=== PATIENT | male | born 1990 | race Caucasian/White ===

== ENCOUNTER 2023-04-28 09:44 | Emergency (ER) | payer SELFPAY ==
--- NOTE | ~2023-04-28 | CT_ITS ---
EXAMINATION: CT abdomen pelvis w con DATE: 04/28/2023 11:21 INDICATION: Low abdominal pain. Nausea. TECHNIQUE: Computed tomography (CT) of the abdomen and pelvis was performed with 100 mL Omnipaque 350 intravenous contrast. Automated exposure control and iterative reconstruction technique were employe d. The dose-length product was 265.68 mGy-cm. COMPARISON: None. FINDINGS: The visualized portions of the lung bases are clear without pneumonia or pleural effusion. The heart size is normal. No pericardial effusion. The liver, gallbladder, spleen, pancreas, adrenal glands, and kidneys are normal. There are no dilated loops of bowel. The appendix is normal. There ar e no pathologically enlarged lymph nodes. There is no free intraperitoneal fluid. There is mild lumba r spondylosis. IMPRESSION: 1. No etiology for the patient's symptoms. Reviewed, dictated and finalized at location A.
--- NOTE | ~2023-04-28 | US_ITS ---
EXAMINATION: US scrotum doppler DATE: 04/28/2023 11:01 INDICATION: Testicular pain. TECHNIQUE: Grayscale and Doppler ultrasound images of the testes were obtained. COMPARISON: None. FINDINGS: The right testis measures 4.7 x 2.3 x 3.4 cm. The left testis measures 4.5 x 2.2 x 3.0 cm. There is normal vascular flow to both testes. The right epididymis demonstrates a 4 mm cyst. The left epididymis is normal with normal vascular flow. There is no varicocele or hydrocele. IMPRESSION: 1. No etiology for the patient's symptoms. Reviewed, dictated and finalized at location A.
[2023-04-28 09:51] VITALS: BP 138/93; PULSE 66; RESP 16; TEMP 36.4; O2SAT 100
--- NOTE | 2023-04-28 09:55 | ED.ABDPAIN ---
HPI - Abdominal Pain General Chief Complaint: Abdominal Pain Stated Complaint: abd pain Time Seen by Provider: 04/28/23 09:49 Source: patient Mode of arrival: ambulatory Limitations: no limitations History of Present Illness HPI narrative: Patient is a 32 y/o male who presents to the ED with c/o abdominal and chest pain. Patient reports having CP for the last 2-3 months. He reports having fairly constant pressure that occurs daily with intermittent sharp stabbing pains. He denies previous hx of CAD, cardiac issues, HTN, HLD, blood clots. Denies SOB. Patient also reports having lower abdominal pain for the last 1.5 weeks. Pain has been constant since that time. No significant aggravating or alleviating factors. He has not tried anything for the pain. Pain occasionally radiates into his testicles/groin. Endorses intermittent mild nausea, denies vomiting, diarrhea, constipation, dysuria, hematuria, fevers. Related Data Allergies Allergy/AdvReac Type Severity Reaction Status Date / Time No Known Allergies Allergy Mild Verified 04/28/23 09:47 Review of Systems Review of Systems: CONSTITUTIONAL: Denies fever, chills, or sweats. CARDIOVASCULAR: See HPI. RESPIRATORY: Denies dyspnea. GASTROINTESTINAL: See HPI. GENITOURINARY: See HPI. SKIN: Denies rash or itching. MUSCULOSKELETAL: Denies back pain, joint pain, or myalgia. NEUROLOGIC: Denies headache, numbness, or weakness. All systems reviewed & are unremarkable except as noted in HPI and below Exam Narrative: GENERAL: Well appearing, well-nourished, non-toxic, in no acute distress. HEAD: Normocephalic, atraumatic. NECK: Supple. No adenopathy, no masses. RESPIRATORY: Airway patent, respirations nonlabored. Clear to auscultation bilaterally, no rales, rhonchi, wheezing. CARDIOVASCULAR: Regular rate and rhythm without murmurs, rubs, or gallops. Peripheral pulses 2+ and equal bilaterally. ABDOMINAL: Soft, minimal discomfort throughout lower abdomen, no significant focal tenderness throughout abdomen, nondistended, no hepatosplenomegaly. Normoactive BS. MUSCULOSKELETAL: Moves all extremities. Strength/ROM intact without gross deformities. SKIN: Warm, dry, normal color. No rashes. NEURO: A&O X3. Speech clear. Cranial nerves II-XII grossly intact. Steady gait. No ataxic movements. PSYCHIATRIC: Anxious, twiddling fingers. Normal interaction. Course Vital Signs Vital signs: Vital Signs Temperature 97.6 F 04/28/23 09:51 Pulse Rate 66 04/28/23 09:51 Respiratory Rate 16 04/28/23 09:51 Blood Pressure 138/93 H 04/28/23 09:51 Pulse Oximetry 100 04/28/23 09:51 Oxygen Delivery Room Air 04/28/23 09:51 Temperature 97.6 F 04/28/23 09:51 Pulse Rate 61 04/28/23 12:26 Respiratory Rate 18 04/28/23 12:26 Blood Pressure 128/82 04/28/23 12:26 Pulse Oximetry 100 04/28/23 12:26 Oxygen Delivery Room Air 04/28/23 09:51 MDM - Abdominal Pain MDM Narrative Medical decision making narrative: Cardiac w/u reassuring. EKG w/ likely early repol. Trop negative. CP has been ongoing for quite some time. Would expect troponin elevation if cardiac in nature. Patient otherwise very low risk for ACS. Heart score of 1 based on EKG. Basic laboratory studies otherwise unremarkable. Urinalysis without signs of infection. CT abd/pelvis negative. Scrotal US negative. Discussed lab and imaging findings and reassuring work-up with patient and mother at bedside. He did not want anything for pain throughout ED stay. No signs of surgical abdomen on repeat evaluations. He had not tried anything for pain prior to arrival. Discussed possibility of muscular strain, anxiety, atypical chest pain. Recommended that patient have close follow-up with primary care doctor for further evaluation and to ensure resolution of symptoms. Given return precautions. Patient agrees with plan. Discharged in stable condition. Medical Records Attestation: I reviewed the patient's medical re
--- NOTE | 2023-04-28 10:04 | ECG_ITS ---
Measurements Intervals [place] Rate: 61 P: 53 MN: 162 QRS: 10 QRSD: 99 T: 60 QT: 360 QTc: 365 Interpretive Statements SINUS RHYTHM POSSIBLE RIGHT VENTRICULAR CONDUCTION DELAY [RSR (QR) IN V1/V2] ST ELEVATION, PROBABLY EARLY REPOLARIZATION [ST ELEVATION WITH NORMALLY INFLECTED T WAVE] RSR PRIME ABNORMAL ECG NO PREVIOUS ECG AVAILABLE FOR COMPARISON Electronically Signed On 04-28-2023 11:11:11 CDT by Brad Dang M.D.
[2023-04-28 10:20] LABS: Basophils Absolute Auto 0.1 K/mm3 (0.0-0.1); Basophils Percent Auto 0.9 % (0.2-1.2); Eosinophils Absolute Auto 0.1 K/mm3 (0-0.3); Eosinophils Percent Auto 1.1 % (0-4.4); Hemoglobin 13.9 g/dL (14.0-18.0); Immature Granulocyte Absolute 0.01 K/mm3 (0.00-0.031); Immature Granulocyte Percent A 0.2 % (0-0.5); Lymphocytes Absolute Auto 1.99 K/mm3 (0.9-3.2); Lymphocytes Percent Auto 37.4 % (18.3-44.2); Mean Corpuscular HGB Conc 34.8 g/dl (32-36); Mean Corpuscular Hemoglobin 32.6 pg (26-34); Mean Corpuscular Volume 93.7 fl (80-100); Mean Platelet Volume 8.6 fl (7.4-10.4); Monocytes Absolute Auto 0.5 K/mm3 (0.1-0.6); Monocytes Percent Auto 9.2 % (2.6-8.5); Neutrophils Absolute Auto 2.7 K/mm3 (1.3-6.7); Neutrophils Percent Auto 51.2 % (45.5-73.1); Platelet Count Result 276 k/mm3 (150-375); Red Blood Count 4.27 M/mm3 (4.6-6.20); Red Cell Distribution Width 12.2 % (11.5-14.5); White Blood Count 5.3 K/mm3 (4.5-10.0)
[2023-04-28 10:41] LABS: Troponin I < 0.012 ng/mL (0.000-0.034)
[2023-04-28 10:50] LABS: Alanine Aminotransferase 18 U/L (6-50); Albumin Level 4.3 g/dL (3.5-5.1); Alkaline Phosphatase 36 U/L (38-126); Anion Gap 3 mmol/L (8-16); Aspartate Amino Transferase 19 U/L (17-59); Bilirubin,Total 0.5 mg/dL (0.2-1.3); Blood Urea Nitrogen 13 mg/dL (9-20); Calcium 9.2 mg/dL (8.4-10.2); Carbon Dioxide 29 mmol/L (22-30); Chloride 104 mmol/L (98-107); Estimated CRCL calculation 106 ml/min; Estimated Glomerular Filt Rate > 60; Glucose 101 mg/dL (65-110); Lipase 60 U/L (23-300); Potassium 4.6 mmol/L (3.4-5.0); Sodium 136 mmol/L (137-145)
[2023-04-28 11:00] VITALS: BP 119/93; PULSE 72; RESP 19; O2SAT 100
--- NOTE | 2023-04-28 11:15 | PC.NURSE ---
pt to CT via stretcher at this time
[2023-04-28 11:18] LABS: Appearance Urine Clear (Clear); Bilirubin Urine Negative (Negative); Blood Urine Negative (Negative); Color Urine Yellow (Yellow); Glucose Urine UA Negative (Negative); Ketones Urine Negative (Negative); Leukocyte Esterase Ur Negative LEU/UL (Negative); Nitrate Urine Negative (Negative); Protein Urine Negative (Negative); Specific Grav Ur 1.006 (1.001-1.035); Urobilinogen Urine 0.2 mg/dL (<2.0); pH Urine 6.5 (5.0-9.0)
[2023-04-28 11:29] LABS: Add Urine Microscopic? NO
[2023-04-28 12:26] VITALS: BP 128/82; PULSE 61; RESP 18; O2SAT 100
== END 2023-04-28 12:27 | disposition home or self-care (01) ==
PROVIDERS: Emergency Medicine; Emergency Provider Physician Assistant
DX: R10.30 Lower abdominal pain, unspecified (principal); R07.9 Chest pain, unspecified
CPT/HCPCS: 36415; 74177; 76870; 80053; 81003; 83690; 84484; 85025; 93005; 93976; 99284; Q9967

== ENCOUNTER 2024-02-28 19:37 | Emergency (ER) | payer SELFPAY ==
--- NOTE | 2024-02-28 19:38 | ED.SKABFB ---
HPI - Skin/Abscess/Foreign Bdy General Chief complaint: Skin/Abscess/Foreign Body Stated complaint: blister on left foot Time Seen by Provider: 02/28/24 19:38 Source: patient Mode of arrival: ambulatory Limitations: no limitations History of Present Illness HPI narrative: Raúl is a 33-year-old male patient presenting to the clinic today with complaints of a blister on his left heel. He reports he has had this blister for a few days and thinks is due to an insect bite. He denies any fever chills. Does have some redness around the blister. Denies any history of diabetes. States the area is very itchy Related Data Allergies Allergy/AdvReac Type Severity Reaction Status Date / Time No Known Allergies Allergy Mild Verified 02/28/24 19:39 Review of Systems Review of Systems: Pertinent positives per HPI. Patient denies any fever, chills, rash, headache, visual changes, dizziness, cough, runny nose, sore throat, shortness of breath, chest pain, palpitations, nausea, vomiting, diarrhea, constipation, abdominal pain, or any urinary issues. PMFSH Comments At the time of my signature, I reviewed and agree with the nursing past medical, surgical, social, and family history. There is no relevant family history pertinent to the patient complaint. Exam Narrative: General: Well-developed, well nourished, in no apparent distress Head: Normocephalic, atraumatic. Cardio: Regular rate and rhythm, s1 and s2 normal, no murmur appreciated. Resp: Clear to auscultation bilaterally, no rhonchi, rales, wheezing or rubs. Integumentary: [place], warm, and dry, blister with serous fluid to the left lateral heel, no induration palpable, mild redness around the blister Course Course Emergency Course: Portions of this record may have been created with voice recognition software. Level of Care: Express Care Visit Vital Signs Vital signs: Vital signs reviewed MDM - Skin/Abscess/Foreign Bdy MDM Narrative Medical decision making narrative: At the time of visit patient is resting comfortably on the exam table. Patient appears to be nontoxic. Plan: I suspect patient has a general allergic reaction due to an insect bite or sting causing a blister to his left heel. Reports that the area is very itchy. Will place him on mupirocin cream to prevent infection when the blister pops. Supportive measures were discussed with the patient and they voiced understanding discharge instructions and agrees to treatment plan. Return precautions reviewed Differential Diagnosis Differential diagnosis: Likely abscess of skin or subcutaneous tissue, cellulitis, eczema, insect bites and other (Blister) Discharge Plan Discharge Clinical Impression: Insect bite Qualifiers: Encounter type: initial encounter Site of insect bite: foot Laterality: left Qualified Code(s): S90.862A - Insect bite (nonvenomous), left foot, initial encounter Patient Disposition: Home, Self-Care Condition: Stable Instructions: Antibiotic Form, Insect Bite or Sting (ED) Additional Instructions: Keep wound clean and dry Avoid popping blister on purpose-allow blister to pop on its own Apply mupirocin cream to the affected area twice daily as directed May take Benadryl 25-50 mg every 6 hours as needed for itching May apply cool compress to the affected area to help alleviate itching Follow-up with your primary care doctor as needed Prescriptions: New mupirocin 2 % ointment 1 applic topical BID 7 Days Qty: 22 0RF Follow-up/Referrals: PHYSICIAN,HEEL GOUGER [Primary Care Provider] - Time of Disposition: 19:48 Quality NIHSS Nursing Documentation ED NIHSS nursing documentation: reviewed/agree
[2024-02-28 19:43] VITALS: BP 124/83; PULSE 97; RESP 16; TEMP 37.2; O2SAT 100
== END 2024-02-28 19:50 | disposition home or self-care (01) ==
PROVIDERS: Emergency Provider Nurse Practitioner Family
DX: S90.862A Insect bite (nonvenomous), left foot, initial encounter (principal); W57.XXXA Bitten or stung by nonvenomous insect and other nonvenomous arthropods, initial encounter
CPT/HCPCS: 99213; G0463

== ENCOUNTER 2024-05-20 17:50 | Outpatient (CLI) | payer OTHER, SELFPAY ==
[2024-05-20 18:08] LABS: Basophils Absolute Auto 0.05 K/mm3 (0.00-0.10); Basophils Percent Auto 0.7 % (0.0-1.0); Eosinophils Absolute Auto 0.15 K/mm3 (0.02-0.50); Hematocrit 41.9 % (40.0-54.0); Hemoglobin 14.4 g/dL (14.0-18.0); Immature Granulocyte Absolute 0.05 K/mm3 (0.00-0.00); Immature Granulocyte Percent A 0.7 % (0.0-0.0); Lymphocytes Absolute Auto 2.65 K/mm3 (1.10-4.50); Lymphocytes Percent Auto 35.3 % (18.0-42.0); Mean Corpuscular HGB Conc 34.4 g/dL (32-36); Mean Corpuscular Hemoglobin 31.6 pg (27.0-31.0); Mean Corpuscular Volume 91.9 fL (78.0-102.0); Mean Platelet Volume 8.3 fl (8.7-11.0); Neutrophils Percent Auto 53.3 % (50.0-70.0); Platelet Count Result 319 K/mm3 (150-420); Red Blood Count 4.56 M/mm3 (4.70-6.10); Red Cell Distribution Width 11.8 % (11.6-14.4); White Blood Count 7.5 K/mm3 (4.8-10.8)
[2024-05-20 18:15] LABS: Hemoglobin A1C 5.2 % (<5.7)
[2024-05-20 18:55] LABS: Alanine Aminotransferase 12 U/L (16-63); Albumin Level 4.6 g/dL (3.4-5.0); Alkaline Phosphatase 45 U/L (46-116); Anion Gap 7 mmol/L (4-12); Aspartate Amino Transferase 10 U/L (15-37); Bilirubin,Total 0.4 mg/dL (0.00-1.00); Blood Urea Nitrogen 20 mg/dL (7-18); Calcium 9.4 mg/dL (8.5-10.1); Carbon Dioxide 32 mmol/L (21-32); Chloride 101 mmol/L (98-108); Cholesterol 158 mg/dL (0-200); Estimated Glomerular Filt Rate > 60; Glucose 93 mg/dL (70-99); HDL Direct 49 mg/dL (40-60); LDL Cholesterol Calculated 90 mg/dL (<130); Osmolality Calculated 292 mOsm/kg (285-295); Potassium 4.1 mmol/L (3.5-5.1); Sodium 140 mmol/L (136-145); Total Protein 7.9 g/dL (6.4-8.2); Triglycerides 94 mg/dL (0-150)
[2024-05-20 19:08] LABS: Erythrocyte Sedimentation Rate 5 mm/hr (0-15)
[2024-05-20 19:18] LABS: Free T4 Free Thyroxine Reflex 0.99 ng/dL (0.76-1.46); Rheumatoid Factor Screen Negative (Negative)
== END 2024-05-20 17:51 | disposition home or self-care (01) ==
PROVIDERS: PCP Nurse Practitioner Family; Visit Provider Nurse Practitioner Family
DX: Z00.00 Encounter for general adult medical examination without abnormal findings (principal); Z82.61 Family history of arthritis
CPT/HCPCS: 36415; 80053; 80061; 83036; 84439; 84443; 85025; 85652; 86430

== ENCOUNTER 2024-06-21 17:51 | Outpatient (CLI) | payer OTHER, SELFPAY ==
--- NOTE | ~2024-06-21 | XR_ITS ---
Lumbosacral Spine: AP and lateral views Clinical History: Pain Findings: The normal lordotic curve is maintained. The vertebral bodies and posterior elements are i ntact. The intervertebral disc spaces are preserved. The sacroiliac joints are normally outlined. Impression: No significant abnormality. Reviewed, dictated and finalized at [facility]. Impression: No significant abnormality.
[2024-06-21 19:19] LABS: Thyroid Stimulating Hormone Reflex 5.43 u/IU/mL (0.36-3.74)
[2024-06-21 19:50] LABS: Free T4 Free Thyroxine Reflex 0.88 ng/dL (0.76-1.46)
== END 2024-06-21 17:52 | disposition home or self-care (01) ==
LOC: CHSLAB 17:55
PROVIDERS: PCP Nurse Practitioner Family; Visit Provider Nurse Practitioner Family
DX: R79.89 Other specified abnormal findings of blood chemistry (principal); M54.41 Lumbago with sciatica, right side
CPT/HCPCS: 36415; 72100; 84439; 84443

== ENCOUNTER 2024-10-19 17:14 | Outpatient (CLI) | payer OTHER, SELFPAY ==
--- OUTSIDE RECORDS SUMMARY | 2024-10-19 17:18 | XMS_ITS | Clinical Summary ---
Author Organization [facility] Address [address] [place] [address] Care Team Providers Care Protozoologist Name Role Phone Pedro Gomez MD Primary Care Provider [phone] Source Comments [facility],non-owned Affiliates and Associated Physician Practices is amultiple site organization consisting of ambulatory clinics and hospital sitesin [place], [place], [place] and [place]. This disclosure is being madepursuant to the Care Everywhere program and may not contain all information available regarding this patient. Last updated 18.[facility] Allergies No known active allergies Medications * Be aware that medications may not be up to date on this document. Alwaysverify current medications with the patient. Medication Sig Dispensed Refills Start Date End Date Status lisdexamfetamine (VYVANSE) 20 MG capsule Take 1 (one) capsule by mouth every morning 30 capsule 02/22/2022 Active Active Problems Problem Noted Date Diagnosed Date Moderate episode of recurrent major depressive d isorder 11/06/2018 Attention-deficit hyperactivity disorder, combin ed type 05/01/2015 Social phobia, generalized 02/13/2015 Specific reading disorder 02/13/2015 Chronic urticaria 02/13/2015 Heartburn 01/26/2015 Resolved Problems Problem Noted Date Diagnosed Date Resolved Date Anxiety 01/27/2018 05/13/2018 Anxiety 01/27/2018 11/06/2018 Tobacco use 05/10/2016 11/06/2018 Immunizations Name Administration Dates Next Due INFLUENZA VACCINE, QUADR. (F LUZONE; FLULAVAL; FLUARIX; AFLURIA QUADRIVALENT; 6MO+), 0.5 ML (IIV4) 07/24/2018 TDAP (7yrs+) 04/28/2015 Family History Medical History Relation Name Comments Anxiety Disorder Father Depression Father Status: Alive Anxiety Disorder Mother Autoimmune Disease Mother Depression Mother Status: Alive Relation Name Status Comments Father Mother Social History Tobacco Use Types Packs/Day Years Used Date Smoking Tobacco: Former Cigarettes Smokeless Tobacco: Never Tobacco Cessation:Counseling Given: Yes Alcohol Use Standard Drinks/Week Comments Yes 0 (1 standard drink = 0.6 oz pur e alcohol) PHQ-2 Answer Date Recorded PHQ2 TOTAL SCORE 4 02/22/2022 Sex and Gender Information Value Date Recorded Sex Assigned at Not on file Gender Identity Not on file Sexual Orientation Not on file Last Filed Vital Signs Vital Sign Reading Time Taken Comments Blood Pressure 110/61 12/21/2021 9:26 AM CDT Pulse 70 12/21/2021 9:26 AM CDT Temperature 36.1 ??C (97 ??F) 12/21/2021 9:26 AM CDT Respiratory Rate 20 12/21/2021 9:26 AM CDT Oxygen Saturation 100% 12/21/2021 9:26 AM CDT Inhaled Oxygen Concentration - - Weight 71.4 kg (157 lb 8 oz) 12/21/2021 9:26 AM CDT Height 174 cm (5' 8.5 ) 12/21/2021 9:26 AM CDT Body Mass Index 23.6 12/21/2021 9:26 AM CDT Plan of Treatment Health Maintenance Due Date Last Done Comments HEPATITIS C SCREENING 10/17/2010 HEPATITIS B VACCINE (1 of 3 - 19+ 3-dose series) 2011 COVID-19 VACCINE (2023-2 5 season) 2024 INFLUENZA VACCINE (#1) 2024 07/24/2018 DEPRESSION SCREENING 09/22/2024 02/22/2022 DTAP/TDAP/TD VACCINES (2 - T d or Tdap) 04/28/2025 04/28/2015 ZOSTER VACCINE (1 of 2) 2042 HIV SCREENING Completed 06/05/2017 HIB VACCINE Aged Out No longer eligi ble based on patient's age to complete this topic HPV VACCINE Aged Out No longer eligi ble based on patient's age to complete this topic MENINGOCOCCAL (Group B) VACCINE Aged Out No longer eligible based on patient's age to complete this topic MENINGOCOCCAL VACCINE Aged Out No sandra joyce eligible based on patient's age to complete this topic PNEUMOCOCCAL VACCINE Aged Out No long er eligible based on patient's age to complete this topic Procedures Procedure Name Priority Date/Time Associated Diagnosis Comments HIV-1 HIV-2 ANTIBODY W REFLX Routine 06/05/2017 10:50 AM CDT from Last 3 Months or Most Recently Relevant to Health Maintenance Results * HIV-1 HIV-2 ANTIBODY W REFLX (06/05/2017 10:50 AM CDT) HIV 1 Antibody Negative Negative [facility] ([place]) HIV-2 Antibody Negative Negative [facility] ([place]) Interpretation Comment [facility] ([place]) Comment: Negative for HIV-1 and HIV-2 antibodies See RNA Reflex. Blood specimen (specimen) BLOOD SPECIMEN / Unknown 06/05/2017 10:50 AM CDT 06/05/2017 11:23 AM CDT Narrative [facility] ([place]) - 06/09/2017 6:06 AM CDT Performed at: ??01 - [facility] [address] ??[id number] Stop Attacher: Roberto Higgins PhD, Phone: ??[phone] Zoe Crockett MD LAB - SEROLOGY ORDER RAAD [facility] ([place]) from Last 3 Months or Most Recently Relevant to Health Maintenance Care Teams Protozoologist Relationship Specialty Start Date End Date Pedro Gomez MD PCP - General 05/14/16
--- OUTSIDE RECORDS SUMMARY | 2024-10-19 17:18 | XMS_ITS | Referral Summary ---
Author Organization [facility] Address [address] [place] [address] Care Team Providers Care Inspector Materials And Processes Name Role Phone Pedro Gomez MD Primary Care Provider [phone] Source Comments [facility],non-owned Affiliates and Associated Physician Practices is amultiple site organization consisting of ambulatory clinics and hospital sitesin [place], [place], [place] and [place]. This disclosure is being madepursuant to the Care Everywhere program and may not contain all information available regarding this patient. Last updated 18.[facility] Allergies No known active allergies Medications * [...] 0.5 ML (IIV4) 07/24/2018 TDAP (7yrs+) 04/28/2015 Social History Tobacco Use Types Packs/Day Years [...] 12/21/2021 9:26 AM CDT Plan of Treatment Not on file Procedures Procedure Name Priority Date/Time Associated Diagnosis Comments HIV-1 HIV-2 ANTIBODY W REFLX Routine 06/05/2017 10:50 AM CDT from Last 3 Months or Most Recently Relevant to Health Maintenance Results * HIV-1 HIV-2 ANTIBODY W REFLX (06/05/2017 10:50 AM CDT) HIV 1 Antibody Negative Negative [facility] ([place]) HIV-2 Antibody Negative Negative [facility] ([place]) Interpretation Comment [facility] ([place]) Comment: Negative for HIV-1 and HIV-2 antibodies See RNA Reflex. Blood specimen (specimen) BLOOD SPECIMEN / Unknown 06/05/2017 10:50 AM CDT 06/05/2017 11:23 AM CDT Narrative [facility] ([place]) - 06/09/2017 6:06 AM CDT Performed at: ??01 - [facility] [address] ??[id number] Electrical Prospecting Supervisor: Roberto Higgins PhD, Phone: ??[phone] Zoe Crockett MD LAB - SEROLOGY ORDER RAAD [facility] ([place]) from Last 3 Months or Most Recently Relevant to Health Maintenance Care Teams Inspector Materials And Processes Relationship Specialty Start Date End Date Pedro Gomez MD PCP - General 05/14/16
--- OUTSIDE RECORDS SUMMARY | 2024-10-19 17:18 | XMS_ITS | Patient Health Summary ---
Author Organization [facility] Address [address] [place] [address] Care Team Providers Care Shipping Point Inspector Name Role Phone Pedro Gomez MD Primary Care Provider [phone] Note from [facility],non-owned Affiliates and Associated Physician Practices is amultiple site organization consisting of ambulatory clinics and hospital sitesin [place], [place], [place] and [place]. This disclosure is being madepursuant to the Care Everywhere program and may not contain all information available regarding this patient. Last updated 18.[facility] Allergies No known active allergies Medications * Be aware that medications may not be up to date on this document. Alwaysverify current medications with the patient. * lisdexamfetamine (VYVANSE) 20 MG capsule(Started 02/22/2022) Take 1 (one) capsule by mouth every morning Active Problems Problem Noted Date Diagnosed Date Moderate episode of recurrent major depressive d isorder 11/06/2018 Attention-deficit hyperactivity disorder, combin ed type 05/01/2015 Social phobia, generalized 02/13/2015 Specific reading disorder 02/13/2015 Chronic urticaria 02/13/2015 Heartburn 01/26/2015 Resolved Problems Problem Noted Date Diagnosed Date Resolved Date Anxiety 01/27/2018 05/13/2018 Anxiety 01/27/2018 11/06/2018 Tobacco use 05/10/2016 11/06/2018 Immunizations * INFLUENZA VACCINE, QUADR. (FLUZONE; FLULAVAL; FLUARIX; AFLURIA QUADRIVALENT; 6MO+), 0.5 ML (IIV4)(Given 07/24/2018) * TDAP (7yrs+)(Given 04/28/2015) Social History Tobacco Use Types Packs/Day Years [...] Mass Index 23.6 12/21/2021 9:26 AM CDT Procedures * SARS-COV-2 (COVID-19) IN HOUSE(Performed 08/08/2020) Performed for Exposure to SARS-associated coronavirus * GLUCOSE(Performed 05/13/2018) Performed for Fatigue, unspecified type * FOLATE(Performed 05/13/2018) Performed for Fatigue, unspecified type * VITAMIN B12(Performed 05/13/2018) Performed for Fatigue, unspecified type * FERRITIN(Performed 05/13/2018) Performed for Fatigue, unspecified type * CBC W AUTO DIFFERENTIAL(Performed 05/13/2018) Performed for Fatigue, unspecified type * TSH(Performed 05/13/2018) Performed for Fatigue, unspecified type * CALPROTECTIN FECAL(Performed 06/05/2017) * CULTURE STOOL+ E COLI SHIGA-LIKE TOXIN(Performed 06/05/2017) * HIV-1 HIV-2 ANTIBODY W REFLX(Performed 06/05/2017) * HIV-1 RNA QUAL(Performed 06/05/2017) * ERYTHROCYTE SEDIMENTATION RATE(Performed 06/05/2017) * COMPREHENSIVE METABOLIC PANEL(Performed 06/05/2017) * C-REACTIVE PROTEIN(Performed 06/05/2017) * CBC W AUTO DIFFERENTIAL(Performed 06/05/2017) * CBC W AUTO DIFFERENTIAL(Performed 06/05/2017) * CHLAMYDIA TRACHOMATIS NAN(Performed 06/05/2017) * NEISSERIA GONORRHOEAE NAN(Performed 06/05/2017) * CULTURE URINE(Performed 06/05/2017) * OCCULT BLOOD FECES 1 - POCT (AMB) [facility]U(Performed 06/05/2017) * HELICOBACTER PYLORI ANTIBODY IGM(Performed 01/26/2015) * TISSUE TRANSGLUTAMINASE AB IGA(Performed 01/26/2015) * IGA BLOOD(Performed 01/26/2015) * EKG 12-LEAD(Performed 01/26/2015) * PT-INR [facility](Performed 01/23/2015) * XR CHEST 2VW(Performed 01/23/2015) * COMPREHENSIVE METABOLIC PANEL(Performed 01/23/2015) * LIPASE BLOOD(Performed 01/23/2015) * CBC W AUTO DIFFERENTIAL(Performed 01/23/2015) * CBC W AUTO DIFFERENTIAL(Performed 01/23/2015) * GLUCOSE - POINT OF CARE (AMB) SLU(Performed 01/23/2015) * GLUCOSE - POINT OF CARE (AMB) [facility]U(Performed 01/23/2015) * GLUCOSE ACCUCHECK(Performed 01/23/2015) Results * (ABNORMAL) SARS-COV-2 (COVID-19) IN HOUSE (08/08/2020 3:48 PM DRUM WORKER) COVID-19 PCR Detected( AA) Not detected 08/10/2020 7:33 AM DRUM WORKER [facility] MICROBIOLOGY Microbiology SPECIMEN FROM NASOPHARYNGEAL STRUCTURE / Unknown Collection / Unknown 08/08/2020 3:48 PM DRUM WORKER 08/08/2020 3:48 PM DRUM WORKER Narrative [facility] MICROBIOLOGY - 08/10/2020 7:33 AM DRUM WORKER This nucleic acid amplification assay performance was validated by [facility]biology [facility]. This test has been authorized by the Food and Drug administration (FDA)under an Emergency??Use Authorization (EUA). This test has been validated in accordance with the FDA's guidance document Policy for Diagnostic Testing in Laboratories Certified to perform High Complexity Testing under CLIA prior to Emergency Use Authorization for Coronavirus Disease-2019 during the Public Health Emergency issued on November 20, 2019. FDA independent review of this validation is pending. This test is only authorized for the duration of time the declaration that circumstances exist justifying the authorization of emergency use of in vitro diagnostic tests for detection of SARS-CoV-2 virus and/or diagnosis of COVID-19 infection under section 564(b)(1) of the Act, 21 U.S.C 360bbb-3 (b)(1), unless the authorization is terminated or revoked sooner. Fact Sheets for this EUA assay are available upon request. Marcelo Barcenas INDUSTRIAL PARAMEDIC-CURATOR [facility] - MICROBIOL OGY ORDERABLES [facility] [address] [place], [place] [address], [facility] [phone] * (ABNORMAL) CBC WITH DIFFERENTIAL (05/13/2018 12:51 PM CDT) Only the most recent of5 resultswithin the time period is included. WBC 5.5 3.5 - 10.5 10? 3 /uL 05/13/2018 2:19 PM CDT [facility] RBC 4.91 4.30 - 5.70 10? 6 /uL 05/13/2018 2:19 PM T [facility] Hemoglobin 15.6 13.5 - 17.5 g/dL 05/13/2018 2:19 PM [facility] Hematocrit 43.0 39.0 - 50.0 % 05/13/2018 2:19 PM T [facility] MCV 87.6 81.0 - 97.0 fL 05/13/2018 2:19 PM T [facility] MCH 31.8 28.0 - 34.0 pg 05/13/2018 2:19 PM [facility] MCHC 36.3(H) 32.0 - 36.0 g/dL 05/13/2018 2:19 PM [facility] Platelet Count 290 150 - 400 10? 3 /uL 05/13/2018 2:19 PM [facility] RDW-SD 38.5 36.0 - 50.0 fL 05/13/2018 2:19 PM [facility] RDW-CV 12.1 11.2 - 14.8 % 05/13/2018 2:19 PM [facility] MPV 9.0(L) 9.3 - 12.8 fL 05/13/2018 2:19 PM [facility] Neutrophils % 45.1 35.0 - 70.0 % 05/13/2018 2:19 PM [facility] Lymphocytes % 42.4 19.7 - 55.1 % 05/13/2018 2:19 PM [facility] Monocytes % 10.1 3.0 - 15.0 % 05/13/2018 2:19 PM [facility] Eosinophils % 2.0 0.0 - 6.0 % 05/13/2018 2:19 PM [facility] Basophil % 0.4 0.0 - 1.5 % 05/13/2018 2:19 PM [facility] Neutrophils Absolute 2.5 1.6 - 7.0 10? 3 /uL 05/13/2018 2:19 PM [facility] Lymphocyte Absolute 2.3 0.8 - 2.9 10? 3 /uL 05/13/2018 2:19 PM [facility] Monocytes Absolute 0.55 0.14 - 0.66 10? 3 /uL 05/13/2018 2:19 PM [facility] Eosinophils Absolute 0.11 0.00 - 0.22 10? 3 /uL 05/13/2018 2:19 PM [facility] Basophils Absolute 0.02 0.00 - 0.06 10? 3 /uL 05/13/2018 2:19 PM [facility] Immature Granulocytes % 0.7 0.0 - 1.0 % 05/13/2018 2:19 PM [facility] Blood BLOOD SPECIMEN / Unknown Lab Venipuncture / Unknown 05/13/2018 12:51 PM CDT 05/13/2018 1:30 PM CDT Nhan Zacarias PA-C LAB - HEMATOLOGY ORD SARAH [address] [phone] * GLUCOSE (05/13/2018 12:51 PM CDT) Glucose 94 70 - 115 mg/dL 05/13/2018 1:58 PM CDT [facility] Blood BLOOD SPECIMEN / Unknown Lab Venipuncture / Unknown 05/13/2018 12:51 PM CDT 05/13/2018 1:30 PM CDT Nhan Zacarias PA-C LAB - CHEMISTRY BARI OSEGUERA Performing Organization Address City/[facility]/ZIP Co de Phone Number [address] [phone] * FOLATE (05/13/2018 12:51 PM CDT) Folate 8.2 7.0 - 31.4 ng/mL 05/13/2018 2:42 PM CDT [facility] Blood BLOOD SPECIMEN / Unknown Lab Venipuncture / Unknown 05/13/2018 12:51 PM CDT 05/13/2018 1:30 PM CDT Nhan Zacarias PA-C LAB - CHEMISTRY BARI OSEGUERA [address] [phone] * VITAMIN B12 (05/13/2018 12:51 PM CDT) Vitamin B12 475 213 - 816 pg/mL 05/13/2018 2:35 PM CDT [facility] Blood BLOOD SPECIMEN / Unknown Lab Venipuncture / Unknown 05/13/2018 12:51 PM CDT 05/13/2018 1:30 PM CDT Nhan Zacarias PA-C LAB - CHEMISTRY BARI OSEGUERA Performing Organization Address City/[facility]/ZIP Co de Phone Number [address] [phone] * TSH (05/13/2018 12:51 PM CDT) TSH 3.142 0.350 - 4.940 uIU/mL 05/13/2018 2:42 PM CDT [facility] Blood BLOOD SPECIMEN / Unknown Lab Venipuncture / Unknown 05/13/2018 12:51 PM CDT 05/13/2018 1:30 PM CDT Nhan Zacarias PA-C LAB - CHEMISTRY BARI OSEGUERA Performing Organization Address City/[facility]/ZIP Co de Phone Number [address] [phone] * FERRITIN (05/13/2018 12:51 PM CDT) Ferritin 98 22 - 275 ng/mL 05/13/2018 2:32 PM CDT [facility] Blood BLOOD SPECIMEN / Unknown Lab Venipuncture / Unknown 05/13/2018 12:51 PM CDT 05/13/2018 1:30 PM CDT Nhan Zacarias PA-C LAB - CHEMISTRY BARI OSEGUERA Performing Organization Address City/[facility]/ZIP Co de Phone Number [address] [phone] * CULTURE STOOL+ E COLI SHIGA-LIKE TOXIN (06/05/2017 11:45 AM CDT) Culture Feces No Salmonella, Shigella, Yersinia, Campylobacter or Escherichia Coli 0157:H7 isolated. Negative for Shiga Toxin by Immunoassay. [facility] Stool specimen (specimen) STOOL SPECIMEN / Unknown 06/05/2017 11:45 AM CDT 06/05/2017 11:45 AM CDT Narrative [facility] - 06/08/2017 1:04 PM CDT Specimen Type->Stool Zoe Crockett MD LAB - MICROBIOLOGY O RDERABLES Performing Organization Address [facility] Co de Phone Number [facility] [address] [phone] * CALPROTECTIN FECAL (06/05/2017 11:45 AM CDT) Calprotectin Fecal 38 0 - 120 ug/g [facility] ([place]) Comment: Concentration ? Interpretation ?? Follow-Up <16 - 50 ug/g ? Normal ? None >50 -120 ug/g ? Borderline ? Re-evaluate in 4-6 weeks ?>120 ug/g ? Abnormal ? Repeat as clinically ?indicated Stool specimen (specimen) STOOL SPECIMEN / Unknown 06/05/2017 11:45 AM CDT 06/05/2017 11:45 AM CDT Narrative [facility]NIGHT) - 06/10/2017 5:10 PM CDT Performed at: ??01 - [address] ??[id number] Commercial Agent: Pedro Spring MD, Phone: ??[phone] Zoe Crockett MD LAB - BODY FLUID ORD ERABLES Performing Organization Address [facility] Co de Phone Number [facility] * HIV-1 RNA QUAL (06/05/2017 10:50 AM CDT) HIV-1 RNA PCR Qualitative Negative Negative [facility] ([place]) Comment:Negative for HIV-1 R NA Final Interpretation Comment [facility] Comment: HIV antibodies were not confirmed and HIV 1 RNA was not detected. No laboratory evidence of HIV 1 infection. Follow-up testing for HIV 2 should be performed if clinically indicated. Blood specimen (specimen) BLOOD SPECIMEN / Unknown 06/05/2017 10:50 AM CDT 06/05/2017 11:23 AM CDT Narrative [facility] ([place]) - 06/09/2017 6:06 AM CDT Performed at: ??02 - [facility] [address] ??[id number] Commercial Agent: Pedro Spring MD, Phone: ??[phone] Performed at: ??01 - [facility] ??[id number] Commercial Agent: Roberto Higgins PhD, Phone: ??[phone] Zoe Crockett MD LAB - SEROLOGY ORDER RAAD Performing Organization Address City/[facility] Co de Phone Number [facility] ([facility]) * HIV-1 HIV-2 ANTIBODY W REFLX (06/05/2017 10:50 AM CDT) HIV 1 Antibody Negative Negative [facility] ([facility]) HIV-2 Antibody Negative Negative [facility] ([facility]) Interpretation Comment [facility] ([facility]) Comment: Negative for HIV-1 and HIV-2 antibodies See RNA Reflex. Blood specimen (specimen) BLOOD SPECIMEN / Unknown 06/05/2017 10:50 AM CDT 06/05/2017 11:23 AM CDT Narrative [facility] - 06/09/2017 6:06 AM CDT Performed at: ??01 - [facility] ??[id number] Commercial Agent: Roberto Higigns PhD, Phone: ??[phone] Zoe Crockett MD LAB - SEROLOGY ORDER RAAD Performing Organization Address City/[facility] Co de Phone Number [facility] ([facility]) * C-REACTIVE PROTEIN (06/05/2017 10:50 AM CDT) C-Reactive Protein <0.5 <=0.5 mg/dL [facility] Blood specimen (specimen) BLOOD SPECIMEN / Unknown 06/05/2017 10:50 AM CDT 06/05/2017 11:23 AM CDT Zoe Crockett MD LAB - CHEMISTRY ORDE RABENID [address] [phone] * ERYTHROCYTE SEDIMENTATION RATE (06/05/2017 10:50 AM CDT) Erythrocyte Sedimentation Rate Westergren 4 0 - 15 MM/HR [facility] Blood specimen (specimen) BLOOD SPECIMEN / Unknown 06/05/2017 10:50 AM CDT 06/05/2017 11:21 AM CDT Zoe Crockett MD LAB - HEMATOLOGY ORD SARAH Performing Organization Address [facility]/ZIP Co de Phone Number [address] [phone] * COMPREHENSIVE METABOLIC PANEL (06/05/2017 10:50 AM CDT) Only the most recent of2 resultswithin the time period is included. BUN 12 7 - 26 mg/dL [facility] Creatinine 1.0 0.6 - 1.2 mg/dL [facility] Sodium 139 136 - 145 mmol/L [facility] Potassium 4.5 3.5 - 4.5 mmol/L [facility] Chloride 104 98 - 107 mmol/L [facility] CO2 26 22 - 29 mmol/L [facility] Glucose 100 70 - 115 mg/dL [facility] Calcium 9.4 8.4 - 10.2 mg/dL [facility] Protein Total 7.4 6.0 - 8.3 g/dL [facility] Albumin 3.9 3.4 - 5.0 g/dL [facility] Bilirubin Total 0.2 0.2 - 1.2 mg/dL [facility] Alkaline Phosphatase 52 40 - 150 Units/L [facility] ALT 18 0 - 55 Units/L [facility] AST 19 5 - 34 Units/L [facility] Anion Gap 14 8 - 18 [facility] BUN/Creatinine Ratio 12 7 - 23 [facility] Osmolality Calculated 288 270 - 300 mOsm/kg [facility] Albumin/Globulin Ratio 1.1 1.1 - 2.3 [facility] eGFR >60 >60 mL/min/1.7 3 m2 [facility] Blood specimen (specimen) BLOOD SPECIMEN / Unknown 06/05/2017 10:50 AM CDT 06/05/2017 11:19 AM CDT Zoe Crockett MD LAB - CHEMISTRY BARI OSEGUERA [facility] [address] [place] [address] * NEISSERIA GONORRHOEAE NAN (06/05/2017 10:26 AM CDT) Neisseria gonorrhoeae NAN Accession No: [id number] Specimen: Urine Reference: [id number] Test: Neisseria Gonorrhoeae, Nucleic Acid Amplification Test Interpretation: Neisseria gonorrhoeae: Not Detected Reference Range: Not Detected Comment: This analysis was performed using an U.S. FDA approved test methodology (Gen-Probe Aptima Combo 2). Test performed at [facility], [address] [place] [address] ??[id number] This case has been personally reviewed and interpreted by the attending (teaching) pathologist. Final Diagnosis performed by Haroon Cee PHD. Electronically signed 06/09/2017 [facility] PATH[facility] ([facility]) Urine specimen (specimen) URINE / Unknown 06/05/2017 10:26 AM CDT 06/05/2017 4:21 PM CDT Narrative [facility] ([place]) - 06/09/2017 8:12 PM CDT Specimen Type->Urine Zoe Crockett MD LAB - MICROBIOLOGY O RDERAMALIK [facility] ([facility]) * CHLAMYDIA TRACHOMATIS NAN (06/05/2017 10:26 AM CDT) Chlamydia trachomatis NAN Accession No: [id number] Specimen: Urine Reference: [id number] Test: Chlamydia Trachomatis, Nucleic Acid Amplification Test Interpretation: Chlamydia trachomatis: Not Detected Reference Range: Not Detected Comment: This analysis was performed using an U.S. FDA approved test methodology (Gen-Probe Aptima Combo 2). Test performed at [facility], [address] [place] [address] ??[id number] This case has been personally reviewed and interpreted by the attending (teaching) pathologist. Final Diagnosis performed by Haroon Cee PHD. Electronically signed 06/09/2017 [facility] ([facility]) Urine specimen (specimen) 06/05/2017 10:26 AM CDT 06/05/2017 4:21 PM CDT Narrative [facility] ([facility]) - 06/09/2017 8:12 PM CDT Specimen Type->Urine Zoe Crockett MD LAB - MICROBIOLOGY O BAIRON Performing Organization Address [facility] Co de Phone Number [facility] ([facility]) * CULTURE URINE (06/05/2017 10:26 AM CDT) Culture Urine No Growth of >100 CFU/ml after 24 hours [facility] Urine specimen (specimen) URINE / Unknown 06/05/2017 10:26 AM CDT 06/05/2017 4:20 PM CDT Narrative [facility] - 06/06/2017 3:52 PM CDT Specimen Type->Urine Zoe Crockett MD LAB - MICROBIOLOGY O BAIRON Performing Organization Address [facility]/ZIP Co de Phone Number [address] [phone] * OCCULT BLOOD FECES 1 - POCT (AMB) [facility] (06/05/2017) Occult Blood Negative [facility] Occult Blood Int POS Control POS - POS Control Acceptable [facility] Occult Blood int Pos Contrl NEG - NEG Control Acceptable [facility] Stool specimen (specimen) 06/05/2017 Zoe Crockett MD LAB - POINT OF CARE ORDERABLES Performing Organization Address [facility]/ZIP Co de Phone Number [facility] * TISSUE TRANSGLUTAMINASE AB IGA (01/26/2015 9:28 AM CDT) TTG Antibody IgA <2 0 - 3 U/mL [facility]) Comment: ?Negative ?0 - ??3 ?Weak Positive ?? 4 - 10 ?Positive ? >10 Tissue Transglutaminase (tTG) has been identified as the endomysial antigen. ??Studies have demonstr- ated that endomysial IgA antibodies have over 99% specificity for gluten sensitive enteropathy. Blood specimen (specimen) BLOOD SPECIMEN / Unknown 01/26/2015 9:28 AM CDT 01/26/2015 10:35 AM CDT Narrative [facility]) - 01/27/2015 3:20 PM CDT Performed at: ??01 - [address], [place], [place] ??[id number] Commercial Agent: Israel Nuñez PhD, Phone: ??[phone] Gifty Hall MD LAB - SEROLOGY OR DERABLES Performing Organization Address [facility]/ZIP Co de Phone Number [facility]) * HELICOBACTER PYLORI ANTIBODY IGM (01/26/2015 9:28 AM CDT) Helicobacter pylori Antibody IgM <9.0 0.0 - 8.9 units [facility]) Comment: ?Negative ?<9.0 ?Equivocal ?? 9.0 - 11.0 ?Positive ? >11.0 This test was developed and its performance characteristics determined [facility]. It has not been cleared or approved by the Food and Drug Administration. Results of this test are for investigational purposes only. The result should not be used as a diagnostic procedure without confirmation of the diagnosis by another medically diagnostic product or procedure. Blood specimen (specimen) BLOOD SPECIMEN / Unknown 01/26/2015 9:28 AM CDT 01/26/2015 10:36 AM CDT Narrative [facility] ([place]) - 01/27/2015 5:14 PM CDT Performed at: ??01 - [address] ??[id number] Commercial Agent: Israel Nuñez PhD, Phone: ??[phone] Gifty Hall MD LAB - SEROLOGY OR DERABLES Performing Organization Address [facility] de Phone Number [facility] * IGA BLOOD (01/26/2015 9:28 AM CDT) IgA 173 87 - 534 mg/dL [facility] Blood specimen (specimen) BLOOD SPECIMEN / Unknown 01/26/2015 9:28 AM CDT 01/26/2015 10:34 AM CDT Gifty Hall MD LAB - CHEMISTRY O RDERABLES Performing Organization Address [facility] Co de Phone Number [address] [phone] * EKG 12-LEAD (01/26/2015 12:00 AM CDT) 01/26/2015 Justin Vázquez MD ECG ORDERABLES Performing Organization Address [facility]/ZIP Co de Phone Number [facility] * (ABNORMAL) PT-INR [facility] (01/23/2015 5:35 PM CDT) PT 15.9(H) 12.1 - 14.8 Seconds [facility] INR 1.2 See Comment [facility] Comment: Suggested therapeutic range for low-intensity coumadin therapy for venous thromboembolism prophylaxis is an INR of 2.0-3.0. ??For high risk patients (Mitral Valve Prosthesis, Atrial Fibrillation, history of TIA/stroke), suggested prophylactic therapeutic range is an INR of 2.5-3.5. Blood specimen (specimen) BLOOD SPECIMEN / Unknown 01/23/2015 5:35 PM CDT 01/23/2015 5:53 PM CDT Narrative [facility] - 01/23/2015 6:04 PM CDT Is patient on Heparin, Argatroban or Dabigatran?->N Leonard Ng MD LAB - COAGULATION OR DERABLES Performing Organization Address [facility] Co de Phone Number [address] [phone] * XR CHEST 2VW (01/23/2015 5:21 PM CDT) Anatomical Region Laterality Modality Chest Other Impressions 01/24/2015 9:07 AM CDT Impression: No acute pulmonary process. This report has been dictated by Josselyn Vargas M.D. (Resident). I, Dr. RUTH MONTEMAYOR M.D. have personally reviewed and interpreted this examination/study. This report was electronically signed by RUTH MONTEMAYOR M.D. ??on 01/24/2015 9:07 AM . Narrative 01/24/2015 9:07 AM CDT Exam: Chest, PA and lateral views Date: 01/23/2015 at 5:12 PM History: 24-year-old male with chest pain. Comparison: None available. Findings: The lungs are clear. There is no pleural effusion or pneumothorax. The cardiomediastinal silhouette is normal. The visible bony thorax is intact. Procedure Note Ruth Montemayor MD - 12/20/2017 Exam: Chest, PA and lateral views Date: 01/23/2015 at 5:12 PM History: 24-year-old male with chest pain. Comparison: None available. Findings: The lungs are clear. There is no pleural effusion or pneumothorax. Thecardiomediastinal silhouette is normal. The visible bony thorax isintact. IMPRESSION Impression: No acute pulmonary process. This report has been dictated by Josselyn Vargas M.D. (Resident). I, Dr. RUTH MONTEMAYOR M.D. have personally reviewed and interpreted thisexamination/study. This report was electronically signed by RUTH MONTEMAYOR M.D. on 01/24/20159:07 AM . Leonard Ng MD DIAGNOSTIC IMAGING O RDERABLES * (ABNORMAL) LIPASE BLOOD (01/23/2015 1:00 PM CDT) Lipase 7(L) 8 - 78 Units/L [facility] Blood specimen (specimen) BLOOD SPECIMEN / Unknown 01/23/2015 1:00 PM CDT 01/23/2015 1:04 PM CDT Leonard Ng MD LAB - CHEMISTRY BARI OSEGUERA [facility] [address] [phone] * GLUCOSE - POINT OF CARE (AMB) U (01/23/2015 12:57 PM CDT) Only the most recent of2 resultswithin the time period is included. Leonard Ng MD LAB - POINT OF CARE ORDERABLES [facility] [facility] RADIOLOGY * GLUCOSE ACCUCHECK (01/23/2015 12:54 PM CDT) Glucose, Fingerstick 80 70-115mg/d L mg/dL [facility] RALS (BEAKER) Comment:Recruitment Intern: VARGAS DANNY AN 01/23/2015 12:5 4 PM CDT Historical Provider LAB - CHEMISTRY O RDERABLES [facility] ([facility]) Care Teams Shipping Point Inspector Relationship Specialty Start Date End Date Pedro Gomez MD PCP - General 05/14/16
--- OUTSIDE RECORDS SUMMARY | 2024-10-19 17:18 | XMS_ITS | Encounter Summary ---
Author Organization [facility] Address [address] [place] [address] Care Team Providers Care Seed Analysis Laboratory Assistant Name Role Phone Pedro Gomez MD Primary Care Provider [phone] Encounter Details Date Type Department Care Team (Late st Contact Info) Description 08/04/2020 Telephone [facility] [address] [place] [address] Ana Maria Sanchez, STEPHANIE-LIVESTOCK COUNTER [address] [place] [phone] Social History Tobacco Use Types Packs/Day Years Used Date Smoking Tobacco: Former Cigarettes Smokeless Tobacco: Never Alcohol Use Standard Drinks/Week Comments Yes 0 (1 standard drink = 0.6 oz pur e alcohol) Sex and Gender Information Value Date Recorded Sex Assigned at Not on file Gender Identity Not on file Sexual Orientation Not on file documented as of this encounter Patient Instructions * Patient Instructions* Elisa Henning - 08/04/2020 11:14 AM COTTON FEEDER Pt call requesting a Covid test referral. He can be contacted at [phone]. ON FEEDER documented in this encounter Plan of Treatment Not on file documented as of this encounter Visit Diagnoses Not on filedocumented in this encounter Additional Health Concerns Infection Onset Date Last Indicated Resolved Time COVID-19 Under Investigation 08/07/2020 08/08/2020 08/10/2020 7:33 AM COTTON FEEDER COVID-19 Confirmed 08/08/2020 08/08/2020 0 4:36 AM COTTON FEEDER documented as of this encounter Care Teams Seed Analysis Laboratory Assistant Relationship Specialty Start Date End Date Pedro Gomez MD PCP - General 05/14/16 documented as of this encounter
[2024-10-19 18:10] LABS: Troponin I 5.4 ng/L (0.00-60.4)
[2024-10-19 18:48] LABS: Thyroid Stimulating Hormone Reflex 1.82 u/IU/mL (0.36-3.74)
== END 2024-10-19 17:15 | disposition home or self-care (01) ==
LOC: CHSLAB 17:15
PROVIDERS: PCP Nurse Practitioner Family; Visit Provider Nurse Practitioner Family
DX: Z00.00 Encounter for general adult medical examination without abnormal findings (principal); R07.89 Other chest pain
CPT/HCPCS: 36415; 84443; 84484

== ENCOUNTER 2024-10-27 15:12 | Outpatient (CLI) | payer OTHER, SELFPAY ==
--- OUTSIDE RECORDS SUMMARY | 2024-10-27 15:45 | XMS_ITS | Referral Summary ---
Author Organization [facility] Address [address] [facility] [place] [address] Care Team Providers Care Fixture Relamper Name Role Phone Pedro Gomez MD Primary Care Provider [phone] Source Comments [facility],non-owned Affiliates and Associated Physician Practices is amultiple site organization consisting of ambulatory clinics and hospital sitesin [place], [place], [place] and [place]. This disclosure is being madepursuant to the Care Everywhere program and may not contain all information available regarding this patient. Last updated 18.[facility] Allergies No known active allergies Medications [...] 70 12/21/2021 9:26 AM CDT Temperature 36.1 C (97 F) 12/21/2021 9:26 AM CDT Respiratory Rate 20 [...] AM CDT) HIV 1 Antibody Negative Negative [facility] (BEAKER) HIV-2 Antibody Negative Negative [facility] (BEAKER) Interpretation Comment [facility] ([place]) Comment: Negative for HIV-1 and HIV-2 antibodies See RNA Reflex. Blood specimen (specimen) BLOOD SPECIMEN / Unknown 06/05/2017 10:50 AM CDT 06/05/2017 11:23 AM CDT Narrative [facility] ([place]) - 06/09/2017 6:06 AM CDT Performed at: - [facility] [address] [id number] Mapping Supervisor: Roberto Higgins PhD, Phone: [phone] Zoe Crockett MD LAB - SEROLOGY ORDER RAAD [facility] ([place]) from Last 3 Months or Most Recently Relevant to Health Maintenance Care Teams Fixture Relamper Relationship Specialty Start Date End Date Pedro Gomez MD PCP - General 05/14/16
--- OUTSIDE RECORDS SUMMARY | 2024-10-27 15:45 | XMS_ITS | Clinical Summary ---
Author Organization [facility] Address [address] [place] [address] Care Team Providers Care Core Drilling Supervisor Name Role Phone Pedro Gomez MD Primary Care Provider [phone] Source Comments [facility],non-owned Affiliates and Associated Physician Practices is amultiple site organization consisting of ambulatory clinics and hospital sitesin [place], [place], [place] and [place]. This disclosure is being madepursuant to the Care Everywhere program and may not contain all information available regarding this patient. Last updated 18.[facility] Allergies No known active allergies Medications * [...] AM CDT) HIV 1 Antibody Negative Negative [facility] ([place]) HIV-2 Antibody Negative Negative [facility] ([employer]) Interpretation Comment [facility] (BEAKER) Comment: Negative for HIV-1 and HIV-2 antibodies See RNA Reflex. Blood specimen (specimen) BLOOD SPECIMEN / Unknown 06/05/2017 10:50 AM CDT 06/05/2017 11:23 AM CDT Narrative [facility] ([place]) - 06/09/2017 6:06 AM CDT Performed at: 01 - [address] [id number] Manager Hematology: Roberto Higgins PhD, Phone: [phone] Zoe Crockett MD LAB - SEROLOGY ORDER RAAD [facility] [place]) from Last 3 Months or Most Recently Relevant to Health Maintenance Care Teams Core Drilling Supervisor Relationship Specialty Start Date End Date Pedro Gomez MD PCP - General 05/14/16
--- OUTSIDE RECORDS SUMMARY | 2024-10-27 15:45 | XMS_ITS | Encounter Summary ---
Author Organization [facility] Address [address] [place] [address] Care Team Providers Care Enterprise Project Manager Name Role Phone Pedro Gomez MD Primary Care Provider [phone] Encounter Details Date Type Department Care Team (Late st Contact Info) Description 08/04/2020 Telephone [facility] [address] [place] [address] Ana Maria Sanchez, STEPHANIE-SHEETMETAL WORKER [address] [place] [phone] Social History Tobacco Use Types Packs/Day Years [...] Instructions* Elisa Henning - 08/04/2020 11:14 AM NEON SIGN INSTALLER Pt call requesting a Covid test referral. He can be contacted at [phone]. SIGN INSTALLER documented in this encounter Plan of Treatment Not on file documented as of this encounter Visit Diagnoses Not on filedocumented in this encounter Additional Health Concerns Infection Onset Date Last Indicated Resolved Time COVID-19 Under Investigation 08/07/2020 08/08/2020 08/10/2020 7:33 AM NEON SIGN INSTALLER COVID-19 Confirmed 08/08/2020 08/08/2020 0 4:36 AM NEON SIGN INSTALLER documented as of this encounter Care Teams Enterprise Project Manager Relationship Specialty Start Date End Date Pedro Gomez MD PCP - General 05/14/16 documented as of this encounter
--- OUTSIDE RECORDS SUMMARY | 2024-10-27 15:45 | XMS_ITS | Patient Health Summary ---
Author Organization [facility] Address [address] [place] [address] Care Team Providers Care [address] Freight Name Role Phone Pedro Gomez MD Primary Care Provider [phone] Note from [facility],non-owned Affiliates and Associated Physician Practices is amultiple site organization consisting of ambulatory clinics and hospital sitesin [place] and [place]. This disclosure is being madepursuant to the Care Everywhere program and may not contain all information available regarding this patient. Last updated 18.[facility] Allergies No known active allergies Medications [...] SARS-COV-2 (COVID-19) IN HOUSE (08/08/2020 3:48 PM HL7 DEVELOPER) COVID-19 PCR Detected( AA) Not detected 08/10/2020 7:33 AM HL7 DEVELOPER [facility] Microbiology SPECIMEN FROM NASOPHARYNGEAL STRUCTURE / Unknown Collection / Unknown 08/08/2020 3:48 PM HL7 DEVELOPER 08/08/2020 3:48 PM HL7 DEVELOPER Narrative [facility] - 08/10/2020 7:33 AM HL7 DEVELOPER This nucleic acid amplification assay performance was validated by [facility]. This test has been authorized by the Food and Drug administration (FDA)under an Emergency Use Authorization (EUA). This test has been validated [...] assay are available upon request. Marcelo Barcenas SENIOR STAFF SPECIALIZED EMPLOYMENT-FILTER OPERATOR LAB - MICROBIOL OGY ORDERABLES [facility] [address] [place], [place] [address], [facility] [phone] * (ABNORMAL) CBC WITH DIFFERENTIAL (05/13/2018 12:51 PM CDT) Only the most recent of5 resultswithin the time period is included. WBC 5.5 3.5 - 10.5 10 3/uL 05/13/2018 2:19 PM CDT [facility] RBC 4.91 4.30 - 5.70 10 6/uL 05/13/2018 2:19 PM [facility] Hemoglobin 15.6 13.5 - 17.5 g/dL 05/13/2018 2:19 PM [facility] Hematocrit 43.0 39.0 - 50.0 % 05/13/2018 2:19 PM [facility] MCV 87.6 81.0 - 97.0 fL 05/13/2018 2:19 PM [facility] MCH 31.8 28.0 - 34.0 pg 05/13/2018 2:19 PM [facility] MCHC 36.3(H) 32.0 - 36.0 g/dL 05/13/2018 2:19 PM [facility] Platelet Count 290 150 - 400 10 3/uL 05/13/2018 2:19 PM [facility] RDW-SD 38.5 36.0 - 50.0 fL 05/13/2018 2:19 PM [facility] RDW-CV 12.1 11.2 - 14.8 % 05/13/2018 2:19 PM [facility] MPV 9.0(L) 9.3 - 12.8 fL 05/13/2018 2:19 PM [facility] Neutrophils % 45.1 35.0 - 70.0 % 05/13/2018 2:19 PM [facility] Lymphocytes % 42.4 19.7 - 55.1 % 05/13/2018 2:19 PM [facility] Monocytes % 10.1 3.0 - 15.0 % 05/13/2018 2:19 PM [facility] Eosinophils % 2.0 0.0 - 6.0 % 05/13/2018 2:19 PM [facility] Basophil % 0.4 0.0 - 1.5 % 05/13/2018 2:19 PM [facility] Neutrophils Absolute 2.5 1.6 - 7.0 10 3/uL 05/13/2018 2:19 PM [facility] Lymphocyte Absolute 2.3 0.8 - 2.9 10 3/uL 05/13/2018 2:19 PM [facility] Monocytes Absolute 0.55 0.14 - 0.66 10 3/uL 05/13/2018 2:19 PM [facility] Eosinophils Absolute 0.11 0.00 - 0.22 10 3/uL 05/13/2018 2:19 PM [facility] Basophils Absolute 0.02 0.00 - 0.06 10 3/uL 05/13/2018 2:19 PM [facility] Immature Granulocytes % 0.7 0.0 - 1.0 % 05/13/2018 2:19 PM [facility] Blood BLOOD SPECIMEN / Unknown Lab Venipuncture / Unknown 05/13/2018 12:51 PM CDT 05/13/2018 1:30 PM CDT Nhan Zacarias PA-C LAB - HEMATOLOGY ORD SARAH [address] [phone] * GLUCOSE (05/13/2018 12:51 PM CDT) Glucose 94 70 - 115 mg/dL 05/13/2018 1:58 PM CDT [facility] Blood BLOOD SPECIMEN / Unknown Lab Venipuncture / Unknown 05/13/2018 12:51 PM CDT 05/13/2018 1:30 PM CDT Nhan Zacarias PA-C LAB - CHEMISTRY ORDIke GUIDOENID Performing Organization Address [facility]/ZIP Co de Phone Number [address] [phone] * FOLATE (05/13/2018 12:51 PM CDT) Folate 8.2 7.0 - 31.4 ng/mL 05/13/2018 2:42 PM CDT [facility] Blood BLOOD SPECIMEN / Unknown Lab Venipuncture / Unknown 05/13/2018 12:51 PM CDT 05/13/2018 1:30 PM CDT Nhan Zacarias PA-C LAB - CHEMISTRY ORDIke OSEGUERA [address] [phone] * VITAMIN B12 (05/13/2018 12:51 PM CDT) Vitamin B12 475 213 - 816 pg/mL 05/13/2018 2:35 PM CDT [facility] Blood BLOOD SPECIMEN / Unknown Lab Venipuncture / Unknown 05/13/2018 12:51 PM CDT 05/13/2018 1:30 PM CDT Nhan JOHNSON - CHEMISTRY BARI OSEGUERA [address] [phone] * TSH (05/13/2018 12:51 PM CDT) TSH 3.142 0.350 - 4.940 uIU/mL 05/13/2018 2:42 PM CDT [facility] Blood BLOOD SPECIMEN / Unknown Lab Venipuncture / Unknown 05/13/2018 12:51 PM CDT 05/13/2018 1:30 PM CDT Nhan Zacarias PA-C LAB - CHEMISTRY BARI OSEGUERA Performing Organization Address City/[facility]/[place] [address], [facility] [phone] * FERRITIN (05/13/2018 12:51 PM CDT) Pathologist [facility] Ferritin 98 22 - 275 ng/mL 05/13/2018 2:32 PM CDT [facility] Blood BLOOD SPECIMEN / Unknown Lab Venipuncture / Unknown 05/13/2018 12:51 PM CDT 05/13/2018 1:30 PM CDT Nhan Zacarias PA-C LAB - CHEMISTRY BARI OSEGUERA Performing Organization Address City/[facility]/ZIP Co de Phone Number [address] [phone] * CULTURE STOOL+ E COLI SHIGA-LIKE TOXIN (06/05/2017 11:45 AM CDT) Pathologist [facility] Culture Feces No Salmonella, Shigella, Yersinia, Campylobacter or Escherichia Coli 0157:H7 isolated. Negative for Shiga Toxin by Immunoassay. [facility] Stool specimen (specimen) STOOL SPECIMEN / Unknown 06/05/2017 11:45 AM CDT 06/05/2017 11:45 AM CDT Narrative [facility] - 06/08/2017 1:04 PM CDT Specimen Type->Stool Zoe Crockett MD LAB - MICROBIOLOGY O RDERABLES [facility] [address] [phone] * CALPROTECTIN FECAL (06/05/2017 11:45 AM CDT) Calprotectin Fecal 38 0 - 120 ug/g [facility] ([facility]) Comment: Concentration Interpretation Follow-Up <16 - 50 ug/g Normal None >50 -120 ug/g Borderline Re-evaluate in 4-6 weeks >120 ug/g Abnormal Repeat as clinically indicated Stool specimen (specimen) STOOL SPECIMEN / Unknown 06/05/2017 11:45 AM CDT 06/05/2017 11:45 AM CDT Narrative [facility] - 06/10/2017 5:10 PM CDT Performed at: [address] [id number] Faculty Physician: Pedro Spring MD, Phone: [phone] Zoe Crockett MD LAB - BODY FLUID ORD ERABLES Performing Organization Address [facility]/ZIP Co de Phone Number [facility]) * HIV-1 RNA QUAL (06/05/2017 10:50 AM CDT) Pathologist [facility] HIV-1 RNA PCR Qualitative Negative Negative [facility]) Comment:Negative for HIV-1 R NA Final Interpretation Comment [facility]) Comment: HIV antibodies were not confirmed and HIV 1 RNA was not detected. No laboratory evidence of HIV 1 infection. Follow-up testing for HIV 2 should be performed if clinically indicated. Blood specimen (specimen) BLOOD SPECIMEN / Unknown 06/05/2017 10:50 AM CDT 06/05/2017 11:23 AM CDT Narrative [facility] [place]) - 06/09/2017 6:06 AM CDT Performed at: [address] [id number] Faculty Physician: Pedro Spring MD, Phone: [phone] Performed at: [address] [place] [address] [id number] Faculty Physician: Roberto Higgins PhD, Phone: [phone] Zoe Crockett MD LAB - SEROLOGY ORDER RAAD Performing Organization Address City/[facility]/ZIP Co de Phone Number [facility] ([facility]) * HIV-1 HIV-2 ANTIBODY W REFLX (06/05/2017 10:50 AM CDT) Pathologist [facility] HIV 1 Antibody Negative Negative [facility] ([facility]) HIV-2 Antibody Negative Negative [facility] ([facility]) Interpretation Comment [facility] ([facility]) Comment: Negative for HIV-1 and HIV-2 antibodies See RNA Reflex. Blood specimen (specimen) BLOOD SPECIMEN / Unknown 06/05/2017 10:50 AM CDT 06/05/2017 11:23 AM CDT Narrative [facility] ([facility]) - 06/09/2017 6:06 AM CDT Performed at: [address] [place] [id number] Faculty Physician: Roberto Higgins PhD, Phone: [phone] Zoe Crockett MD LAB - SEROLOGY ORDER RAAD Performing Organization Address City/[facility]/ZIP Co de Phone Number [facility] * C-REACTIVE PROTEIN (06/05/2017 10:50 AM CDT) [facility] C-Reactive Protein <0.5 <=0.5 mg/dL [facility] Blood specimen (specimen) BLOOD SPECIMEN / Unknown 06/05/2017 10:50 AM CDT 06/05/2017 11:23 AM CDT Zoe Crockett MD LAB - CHEMISTRY BARI OSEGUERA [address] [phone] * ERYTHROCYTE SEDIMENTATION RATE (06/05/2017 10:50 AM CDT) Erythrocyte Sedimentation Rate Westergren 4 0 - 15 MM/HR [facility] Blood specimen (specimen) BLOOD SPECIMEN / Unknown 06/05/2017 10:50 AM CDT 06/05/2017 11:21 AM CDT Zoe Crockett MD LAB - HEMATOLOGY ORD SARAH [facility] [address] [place] [address] * COMPREHENSIVE METABOLIC PANEL (06/05/2017 10:50 AM CDT) Only the most recent of2 resultswithin the time period is included. BUN 12 7 - 26 mg/dL [facility] Creatinine 1.0 0.6 - 1.2 mg/dL [facility] Sodium 139 136 - 145 mmol/L [facility] Potassium 4.5 3.5 - 4.5 mmol/L [facility] Chloride 104 98 - 107 mmol/L [facility] CO2 26 22 - 29 mmol/L [facility] Glucose 100 70 - 115 mg/dL [facility] Calcium 9.4 8.4 - 10.2 mg/dL [facility] Protein Total 7.4 6.0 - 8.3 g/dL [facility] Albumin 3.9 3.4 - 5.0 g/dL [facility] Bilirubin Total 0.2 0.2 - 1.2 mg/dL [facility] Alkaline Phosphatase 52 40 - 150 Units/L [facility] ALT 18 0 - 55 Units/L [facility] AST 19 5 - 34 Units/L [facility] Anion Gap 14 8 - 18 [facility] BUN/Creatinine Ratio 12 7 - 23 [facility] Osmolality Calculated 288 270 - 300 mOsm/kg [facility] Albumin/Globulin Ratio 1.1 1.1 - 2.3 [facility] eGFR >60 >60 mL/min/1.7 3 m2 [facility] Blood specimen (specimen) BLOOD SPECIMEN / Unknown 06/05/2017 10:50 AM CDT 06/05/2017 11:19 AM CDT Zoe Crockett MD LAB - CHEMISTRY BARI OSEGUERA [facility] [address] [phone] * NEISSERIA GONORRHOEAE NAN (06/05/2017 10:26 AM CDT) Neisseria gonorrhoeae NAN Accession No: [id number] Specimen: Urine Reference: [id number] Test: Neisseria Gonorrhoeae, Nucleic Acid Amplification Test Interpretation: Neisseria gonorrhoeae: Not Detected Reference Range: Not Detected Comment: This analysis was performed using an U.S. FDA approved test methodology (Gen-Probe Aptima Combo 2). Test performed at [facility], [address] [place] [address] This case has been personally reviewed and interpreted by the attending (teaching) pathologist. Final Diagnosis performed by Haroon Cee PHD. Electronically signed 06/09/2017 [facility] ([facility]) Urine specimen (specimen) URINE / Unknown 06/05/2017 10:26 AM CDT 06/05/2017 4:21 PM CDT Narrative [facility] ([facility]) - 06/09/2017 8:12 PM CDT Specimen Type->Urine Zoe Crockett MD LAB - MICROBIOLOGY O BAIRON Performing Organization Address City/[facility]/ZIP Co de Phone Number [facility] ([facility]) * CHLAMYDIA TRACHOMATIS NAN (06/05/2017 10:26 AM CDT) Chlamydia trachomatis NAN Accession No: [id number] Specimen: Urine Reference: [id number] Test: Chlamydia Trachomatis, Nucleic Acid Amplification Test Interpretation: Chlamydia trachomatis: Not Detected Reference Range: Not Detected Comment: This analysis was performed using an U.S. FDA approved test methodology (Gen-Probe Aptima Combo 2). Test performed at [facility], [address] [place] [address] This case has been personally reviewed and interpreted by the attending (teaching) pathologist. Final Diagnosis performed by Haroon Cee PHD. Electronically signed 06/09/2017 [facility] ([facility]) Urine specimen (specimen) 06/05/2017 10:26 AM CDT 06/05/2017 4:21 PM CDT Narrative [facility] ([facility]) - 06/09/2017 8:12 PM CDT Specimen Type->Urine Zoe Crockett MD LAB - MICROBIOLOGY O BAIRON Performing Organization Address [facility] Co de Phone Number [facility] ([facility]) * CULTURE URINE (06/05/2017 10:26 AM CDT) Culture Urine No Growth of >100 CFU/ml after 24 hours [facility] Urine specimen (specimen) URINE / Unknown 06/05/2017 10:26 AM CDT 06/05/2017 4:20 PM CDT Narrative [facility] - 06/06/2017 3:52 PM CDT Specimen Type->Urine Zoe Crockett MD LAB - MICROBIOLOGY O BAIRON Performing Organization Address [facility] Co de Phone Number [address] [phone] * OCCULT BLOOD FECES 1 - POCT (AMB) [facility] (06/05/2017) Occult Blood Negative [facility] Occult Blood Int POS Control POS - POS Control Acceptable [facility] Occult Blood int Pos Contrl NEG - NEG Control Acceptable [facility] Stool specimen (specimen) 06/05/2017 Zoe Crockett MD LAB - POINT OF CARE ORDERABLES Performing Organization Address [facility] Co de Phone Number [facility] * TISSUE TRANSGLUTAMINASE AB IGA (01/26/2015 9:28 AM CDT) TTG Antibody IgA <2 0 - 3 U/mL [facility] ([facility]) Comment: Negative 0 - 3 Weak Positive 4 - 10 Positive >10 Tissue Transglutaminase (tTG) has been identified as the endomysial antigen. Studies have demonstr- ated that endomysial IgA antibodies have over 99% specificity for gluten sensitive enteropathy. Blood specimen (specimen) BLOOD SPECIMEN / Unknown 01/26/2015 9:28 AM CDT 01/26/2015 10:35 AM CDT Narrative [facility]) - 01/27/2015 3:20 PM CDT Performed at: [address] [place] [address] [id number] Faculty Physician: Israel Nuñez PhD, Phone: [phone] Gifty Hall MD LAB - SEROLOGY OR DERABLES Performing Organization Address [facility] Co de Phone Number [facility]) * HELICOBACTER PYLORI ANTIBODY IGM (01/26/2015 9:28 AM CDT) Helicobacter pylori Antibody IgM <9.0 0.0 - 8.9 units [facility]) Comment: Negative <9.0 Equivocal 9.0 - 11.0 Positive >11.0 This test was developed and its performance characteristics determined by [facility]. It has not been cleared or approved by the Food and Drug Administration. Results of this test are for investigational purposes only. The result should not be used as a diagnostic procedure without confirmation of the diagnosis by another medically diagnostic product or procedure. Blood specimen (specimen) BLOOD SPECIMEN / Unknown 01/26/2015 9:28 AM CDT 01/26/2015 10:36 AM CDT Narrative [facility]) - 01/27/2015 5:14 PM CDT Performed at: [address] [place] [address] [id number] Faculty Physician: Israel Nuñez PhD, Phone: [phone] Gifty Hall MD LAB - SEROLOGY OR DERABLES Performing Organization Address City/[facility]/ZIP Co de Phone Number [facility]) * IGA BLOOD (01/26/2015 9:28 AM CDT) IgA 173 87 - 534 mg/dL [facility] Blood specimen (specimen) BLOOD SPECIMEN / Unknown 01/26/2015 9:28 AM CDT 01/26/2015 10:34 AM CDT Gifty Hall MD LAB - CHEMISTRY O RDERABLES Performing Organization Address [facility] Co de Phone Number [address] [phone] * EKG 12-LEAD (01/26/2015 12:00 AM CDT) 01/26/2015 Justin Vázquez MD ECG ORDERABLES Performing Organization Address [facility] de Phone Number [facility] * (ABNORMAL) PT-INR [facility] (01/23/2015 5:35 PM CDT) PT 15.9(H) 12.1 - 14.8 Seconds [facility] INR 1.2 See Comment [facility] Comment: Suggested therapeutic range for low-intensity coumadin therapy for venous thromboembolism prophylaxis is an INR of 2.0-3.0. For high risk patients (Mitral Valve Prosthesis, Atrial Fibrillation, history of TIA/stroke), suggested prophylactic therapeutic range is an INR of 2.5-3.5. Blood specimen (specimen) BLOOD SPECIMEN / Unknown 01/23/2015 5:35 PM CDT 01/23/2015 5:53 PM CDT Narrative [facility] - 01/23/2015 6:04 PM CDT Is patient on Heparin, Argatroban or Dabigatran?->N Leonard Ng MD LAB - COAGULATION OR DERABLES Performing Organization Address [facility] Co de Phone Number [address] [phone] * XR CHEST 2VW (01/23/2015 5:21 PM CDT) Anatomical Region Laterality Modality Chest Other Impressions 01/24/2015 9:07 AM CDT Impression: No acute pulmonary process. This report has been dictated by Josselyn Vargas M.D. (Resident). I, Dr. RUTH MONTEMAYOR M.D. have personally reviewed and interpreted this examination/study. This report was electronically signed by RUTH MONTEMAYOR M.D. on 01/24/2015 9:07 AM . Narrative 01/24/2015 9:07 [...] CDT) Lipase 7(L) 8 - 78 Units/L [facility] Blood specimen (specimen) BLOOD SPECIMEN / Unknown 01/23/2015 1:00 PM CDT 01/23/2015 1:04 PM CDT Leonard Ng MD LAB - CHEMISTRY BARI OSEGUERA [facility] Organization Address City/State/ZIP Co de Phone Number [address] [phone] * GLUCOSE - POINT OF CARE (AMB) [facility] (01/23/2015 12:57 PM CDT) Only the most recent of2 resultswithin the time period is included. Leonard Ng MD LAB - POINT OF CARE ORDERABLES [facility] * GLUCOSE ACCUCHECK (01/23/2015 12:54 PM CDT) Glucose, Fingerstick 80 70-115mg/d L mg/dL [facility] ([place]) Comment:Channel Director: ALICIA DELGADO AN 01/23/2015 12:5 4 PM CDT Historical Provider LAB - CHEMISTRY O RDERABLES Performing Organization Address City/[facility] Co de Phone Number [facility] ([facility]) Care Teams [address] Freight Relationship Specialty Start Date End Date Pedro Gomez MD PCP - General 05/14/16
== END 2024-10-27 15:13 | disposition home or self-care (01) ==
LOC: CHSIMG 15:14
PROVIDERS: PCP Family Medicine; Visit Provider Nurse Practitioner Family
DX: R07.89 Other chest pain (principal)
CPT/HCPCS: 99199

== ENCOUNTER 2024-10-29 17:00 | Outpatient (RCR) | payer OTHER, SELFPAY ==
--- NOTE | 2024-10-29 17:46 | OPREHPOC ---
Outpatient Therapy Plan of Care This is a Multidisciplinary Plan of Care that may contain components documented by all disciplines (PT, OT, and ST.) PT Problem 1 PT Problem #1 Knowledge Deficit PT Goal 1 Goal / Goal Update 1. independent and compliant with HEP Target Visit 5 PT Problem 2 PT Problem #2 Pain PT Goal 1 Goal / Goal Update 1. no pain in the last week Target Visit 10 PT Problem 3 PT Problem #3 Impaired Strength PT Goal 1 Goal / Goal Update 1. 5/5 bilateral hip strength Target Visit 10 PT Problem 4 PT Problem #4 Impaired Functional Mobility PT Goal 1 Goal / Goal Update 1. oswestry to display 0% functional deficits 2. patient to sit for 2 hours without increased pain 3. patient to squat and safely lift 40lbs from floor to waist without pain Target Visit 10
--- NOTE | 2024-10-29 17:46 | PTOPEVAL1 ---
Assessment and note entered by JT File, PT Evaluation Information Assessment Status Evaluation ICD-10 Condition Codes (PT) Pain in low back M54.50,Radiculopathy, lumbar region M54.16 Onset 10/25/24 Subjective Information patient reports he has been having symptoms for 6 months or so. he reports he has lower back and R hip/LE pain. he reports the lower back has been getting worse and worse shooting pains down the R LE for the past month. he reports no injury. 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 he reports he does a small amount of lifting throughout his day, but mostly stands and sits back and forth to his desk. he reports he has increased pain and symptoms with prolonged sitting . he reports he did have an xray of the lower back that was negative. pain goes down the back of the R thigh sometimes just to the knee, but other times to the foot. Assessment PT Clinical Summary mr. mathews is a 34 yo man who presents to skilled PT services for evaluation and treatment of lower back pain. he presents today with signs and symptoms of a discoid type injury. he displays decreased hip and core strength, pain with prolonged lifting and sitting activities, and decreased quality of life. continued skilled PT is indicated to improve his objective/functional deficits and return to his prior level functional activity performance/quality of life. Plan of Care Treatment Frequency and 2x weekly for 10 visits Duration These treatments will address the objective and functional deficits as defined above. The patient will be advanced safely and appropriately in order for the patient to progress towards his/her prior level of function. Additional exercises will be introduced and as well as a comprehensive home exercise program upon discharge, if needed, ?to ensure carryover of functional gains achieved in the clinic. This treatment plan has been reviewed and agreement upon by the patient.
--- NOTE | 2024-11-25 17:50 | OPREHPOC ---
Outpatient Therapy Plan of Care This is a Multidisciplinary Plan of Care that may contain components documented by all disciplines (PT, OT, and ST.) PT Problem 1 PT Problem #1 Knowledge Deficit PT Goal 1 Goal / Goal Update 1. independent and compliant with HEP Target Visit 5 PT Problem 2 PT Problem #2 Pain PT Goal 1 Goal / Goal Update 1. no pain in the last week Target Visit 10 Progress Not Met PT Problem 3 PT Problem #3 Impaired Strength PT Goal 1 Goal / Goal Update 1. 5/5 bilateral hip strength Target Visit 10 Progress Met PT Problem 4 PT Problem #4 Impaired Functional Mobility PT Goal 1 Goal / Goal Update 1. oswestry to display 0% functional deficits - not met 2. patient to sit for 2 hours without increased pain -not met 3. patient to squat and safely lift 40lbs from floor to waist without pain -not met Target Visit 10 Progress Not Met
--- NOTE | 2024-11-25 17:50 | PTOPDC ---
Assessment and note entered by Fanny Felix, PT Evaluation Information Assessment Status Discharge ICD-10 Condition Codes (PT) Pain in low back M54.50,Radiculopathy, lumbar region M54.16 Onset 10/25/24 Subjective Information Raúl Santana reports that his low back pain and right LE pain has not changed since he started PT. He has had worse pain into his right buttock the last week and notes this pain increased after putting together furniture on 11/21/24. He has also noted an onset of tingling in the right buttock and thigh as well as the left ankle. He continues to have limited tolerance to sitting. Reported Pain Level Pain Score 8: Self Report Assessment PT Clinical Summary Raúl Santana has completed 9 skilled PT visits for low back pain and radiculopathy into the right LE. He is reporting no change in symptoms since starting PT and pain levels have been higher the last week. He continues to have difficulty with sitting for more than an hour. He objectively demonstrates decreased left lateral flexion lumbar AROM with pain elicited and decreased core strength. He has had a regression in lumbar AROM for extension and lateral flexion since his initial evaluation. Special tests are negative however, symptoms correspond with a disc injury. He will be discharged from skilled PT and was referred to follow up with his physician for further diagnostic testing. Plan of Care PT Services Indicated No
== END 2024-11-25 18:00 | disposition home or self-care (01) ==
LOC: CHSPT 17:00
PROVIDERS: PCP Nurse Practitioner Family; Visit Provider Nurse Practitioner Family
DX: M54.41 Lumbago with sciatica, right side (principal)
CPT/HCPCS: 97012; 97014; 97110; 97161; 97750; G0283

== ENCOUNTER 2024-12-16 07:33 | Outpatient (CLI) | payer OTHER, SELFPAY ==
--- NOTE | ~2024-12-16 | MR_ITS ---
EXAMINATION: MR lumbar spine wo con DATE: 12/16/2024 08:58 INDICATION: Lumbago with sciatica, right-sided. TECHNIQUE: Magnetic resonance imaging (MRI) of the lumbar spine was performed without intravenous con trast. Sequences included sagittal T2-weighted FSE, sagittal T2-weighted FS FSE, sagittal T1-weighted FSE, and axial T2-weighted FSE. COMPARISON: Lumbar spine radiographs 06/21/2024 FINDINGS: Bone alignment is normal. There is mild chronic anterior wedging of T12 and L1 vertebral ryann dies, likely physiologic. There are Schmorl's nodes at multiple levels. Intervertebral disc heights a re normal. The distal spinal cord signal intensity is normal. The conus medullaris is at T12-L1. The following disc levels are specifically discussed: L1-L2: There is a central protrusion. There is no facet joint osteoarthritis. There is no neural fora shellie stenosis. There is mild central canal stenosis. L2-L3: The disc does not extend beyond the endplate margin. There is mild bilateral facet joint osteo arthritis. There is no neural foraminal stenosis. There is no central canal stenosis. L3-L4: The disc does not extend beyond the endplate margin. There is mild bilateral facet joint osteo arthritis. There is no neural foraminal stenosis. There is no central canal stenosis. L4-L5: The disc does not extend beyond the endplate margin. There is mild right facet joint osteoarth ritis. There is no neural foraminal stenosis. There is no central canal stenosis. L5-S1: There is a central protrusion. There is moderate right and severe left facet joint osteoarthri tis. There is no neural foraminal stenosis. There is mild central canal stenosis. IMPRESSION: 1. Mild lumbar spondylosis. Reviewed, dictated and finalized at location A. IMPRESSION: 1. Mild lumbar spondylosis.
--- OUTSIDE RECORDS SUMMARY | 2024-12-16 07:37 | XMS_ITS | Encounter Summary ---
Author Organization [facility] Address [address] [place] [address] Care Team Providers Care Bottle Capping Machine Operator Name Role Phone Pedro Gomez MD Primary Care Provider [phone] Encounter Details Date Type Department Care Team (Late st Contact Info) Description 08/04/2020 Telephone [facility] [address] [place] [address] Ana Maria Sanchez, STEPHANIE-AIRPORT OPERATIONS CREW MEMBER [address] [place] [id number] Social History Tobacco Use Types Packs/Day Years [...] Instructions* Elisa Henning - 08/04/2020 11:14 AM POKER MANAGER Pt call requesting a Covid test referral. He can be contacted at [phone]. R MANAGER documented in this encounter Plan of Treatment Not on file documented as of this encounter Visit Diagnoses Not on filedocumented in this encounter Additional Health Concerns Infection Onset Date Last Indicated Resolved Time COVID-19 Under Investigation 08/07/2020 08/08/2020 08/10/2020 7:33 AM POKER MANAGER COVID-19 Confirmed 08/08/2020 08/08/2020 0 4:36 AM POKER MANAGER documented as of this encounter Care Teams Bottle Capping Machine Operator Relationship Specialty Start Date End Date Pedro Gomez MD PCP - General 05/14/16 documented as of this encounter
--- OUTSIDE RECORDS SUMMARY | 2024-12-16 07:37 | XMS_ITS | Clinical Summary ---
Author Organization [facility] Address [address] [place] [address] Care Team Providers Care Banana Handler Name Role Phone Pedro Gomez MD Primary Care Provider [phone] Source Comments [facility],non-owned Affiliates and Associated Physician Practices is amultiple site organization consisting of ambulatory clinics and hospital sitesin [place], [place], [place] and [place]. This disclosure is being madepursuant [...] to complete this topic MENINGOCOCCAL (Group B) VACC INE SHARED DECISION-MAKING Aged Out No longer eligibl e based on patient's age to complete this topic MENINGOCOCCAL GROUPS A/C/Y/W VACCINE Aged Out No longer eligible b ased on patient's age to complete this topic [...] AM CDT) HIV 1 Antibody Negative Negative [facility] ([facility]) HIV-2 Antibody Negative Negative [facility] ([facility]) Interpretation Comment [facility] ([facility]) Comment: Negative for HIV-1 and HIV-2 antibodies See RNA Reflex. Blood specimen (specimen) BLOOD SPECIMEN / Unknown 06/05/2017 10:50 AM CDT 06/05/2017 11:23 AM CDT Narrative [facility] ([place]) - 06/09/2017 6:06 AM CDT Performed at: 01 - [facility] [id number] Farm Machine Operator: Roberto Higgins PhD, Phone: [phone] Zoe Crockett MD LAB - SEROLOGY ORDER RAAD [facility]) from Last 3 Months or Most Recently Relevant to Health Maintenance Care Teams Banana Handler Relationship Specialty Start Date End Date Pedro Gomez MD PCP - General 05/14/16
== END 2024-12-16 07:34 | disposition home or self-care (01) ==
LOC: CHSIMG 07:34
PROVIDERS: PCP Nurse Practitioner Family; Visit Provider Nurse Practitioner Family
DX: M54.41 Lumbago with sciatica, right side (principal); M43.06 Spondylolysis, lumbar region
CPT/HCPCS: 72148

== ENCOUNTER 2025-01-17 14:44 | Outpatient (CLI) | payer OTHER, SELFPAY ==
--- NOTE | 2025-01-17 14:56 | ECG_ITS ---
Test Date: 2025-01-17 15:08:08 Measurements Intervals [place] Rate: 55 P: 57 [place]: 167 QRS: 51 QRSD: 103 T: 70 QT: 368 QTc: 353 Interpretive Statements SINUS BRADYCARDIA INCOMPLETE RIGHT BUNDLE BRANCH BLOCK ST ELEVATION IN ANT/INF LEADS, PROBABLY EARLY REPOLARIZATION BORDERLINE ECG No previous ECG available for comparison Electronically Signed On 01-17-2025 16:55:11 CDT by Satya Cervantes D.O.
[2025-01-17 15:02] LABS: Add Urine Microscopic? NO; Appearance Urine Clear (Clear); Bilirubin Urine Negative (Negative); Blood Urine Negative (Negative); Color Urine Light Yellow (Yellow); Glucose Urine UA Negative (Negative); Ketones Urine Negative (Negative); Leukocyte Esterase Ur Negative LEU/UL (Negative); Nitrate Urine Negative (Negative); Protein Urine Negative (Negative); Urobilinogen Urine 0.2 mg/dL (0.2-1.0); pH Urine 6.5 (5.0-8.0)
[2025-01-17 15:44] LABS: Albumin Level 4.1 g/dL (3.4-5.0); Anion Gap 5 mmol/L (4-12); Blood Urea Nitrogen 15 mg/dL (7-18); Calcium 9.2 mg/dL (8.5-10.1); Carbon Dioxide 32 mmol/L (21-32); Chloride 106 mmol/L (98-108); Estimated Glomerular Filt Rate > 60; Glucose 92 mg/dL (70-99); Osmolality Calculated 296 mOsm/kg (285-295); Phosphorus 3.9 mg/dL (2.6-4.7); Potassium 4.4 mmol/L (3.5-5.1); Sodium 143 mmol/L (136-145)
--- OUTSIDE RECORDS SUMMARY | 2025-01-17 16:54 | XMS_ITS | Clinical Summary ---
Author Organization [facility] Address [address] [facility] [place] [place] [address] Care Team Providers Care Audiovisual Librarian Name Role Phone Pedro Gomez MD Primary Care Provider [phone] Source Comments [facility],non-owned Affiliates and Associated Physician Practices is amultiple site organization consisting of ambulatory clinics and hospital sitesin [place], [place], [place] and [place]. This disclosure is being madepursuant to the Care Everywhere program and may not contain all information available regarding this patient. Last updated 18.[facility] Allergies No known active allergies Medications * This document contains information received from the source organization and may not represent a complete record from that organization. * Be aware that medications may not be up to date on this document. Alwaysverify current medications with the patient. lisdexamfetamin e (VYVANSE) 20 MG capsule Take 1 (one) [...] 01/27/2018 11/06/2018 Tobacco use 05/10/2016 11/06/2018 Immunizations Immunization Administration Dates Next Due INFLUENZA VACCINE, QUADR. 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 Blood specimen (specimen) BLOOD SPECIMEN / Unknown 06/05/2017 10:50 AM CDT 06/05/2017 11:23 AM CDT Narrative [facility] ([facility]) - 06/09/2017 6:06 AM CDT Performed at: - [facility] [address] [place], [place] [id number] Computer Hardware Engineer: Roberto Higgins PhD, Phone: [phone] us Zoe Crockett MD LAB - SEROLOGY ORDERABLES Final Result [facility] ([facility]) [address] [place] [address], [place] from Last 3 Months or Most Recently Relevant to Health Maintenance Insurance ANTHEM Care Teams Audiovisual Librarian Relationship Specialty Start Date End Date Pedro Gomez MD PCP - General 05/14/16
--- OUTSIDE RECORDS SUMMARY | 2025-01-17 16:54 | XMS_ITS | Encounter Summary ---
Author Organization [facility] Address [address] [place] [address] Care Team Providers Care Poke In Name Role Phone Pedro Gomez MD Primary Care Provider [phone] Encounter Details Date Type Department Care Team (Late st Contact Info) Description 08/04/2020 Telephone [facility] [address] [place] [address] Ana Maria Sanchez, TWISTER TENDER PAPER-[facility] [address] [place] [phone] Social History Tobacco Use Types Packs/Day Years Used Date Smoking Tobacco: Former Cigarettes Smokeless Tobacco: Never Alcohol Use Standard Drinks/Week Comments Yes 0 (1 standard drink = 0.6 oz pur e alcohol) Sex and Gender Information Value Date Recorded Sex Assigned at Not on file Legal Sex Male 5:23 PM TANKROOM TENDER Gender Identity Not on file Sexual Orientation Not on file documented as of this encounter Patient Instructions * Patient Instructions* Elisa Henning - 08/04/2020 11:14 AM TANKROOM TENDER Pt call requesting a Covid test referral. He can be contacted at [phone]. ROOM TENDER documented in this encounter Plan of Treatment Not on file documented as of this encounter Visit Diagnoses Not on filedocumented in this encounter Additional Health Concerns Infection Onset Date Last Indicated Resolved Time COVID-19 Under Investigation 08/07/2020 08/08/2020 08/10/2020 7:33 AM TANKROOM TENDER COVID-19 Confirmed 08/08/2020 08/08/2020 0 4:36 AM TANKROOM TENDER documented as of this encounter Care Teams Poke In Relationship Specialty Start Date End Date Pedro Gomez MD PCP - General 05/14/16 documented as of this encounter
== END 2025-01-17 14:45 | disposition home or self-care (01) ==
PROVIDERS: PCP Nurse Practitioner Family; Visit Provider Nurse Practitioner Family
DX: M54.50 Low back pain, unspecified (principal); Z87.898 Personal history of other specified conditions; R07.89 Other chest pain; I45.19 Other right bundle-branch block
CPT/HCPCS: 36415; 80069; 81003; 93005

== ENCOUNTER 2025-02-04 10:18 | Outpatient (CLI) | payer OTHER, SELFPAY ==
--- NOTE | ~2025-02-04 | CT_ITS ---
CT of the Abdomen and Pelvis: Indication: Abdominal pain Technique: 2.5 mm axial scans were obtained through the abdomen and pelvis following intravenous adm inistration of 100 cc of Omnipaque 350. Dose reduction technique was used on this scan by utilizing a utomated exposure control and iterative reconstruction technique. The dose-length product (DLP) was 2 69.63 mGy-cm. COMPARISON: 04/28/2023 Findings: Scans through the lung bases are unremarkable. The liver, spleen, pancreas, gallbladder, adrenals and kidneys are within normal limits. No evidence of aortic aneurysm. No lymphadenopathy. No bowel obstruction or bowel wall thickening. There is no evidence to suggest acute appendicitis. Images through the pelvis were performed. Urinary bladder unremarkable. No pelvic mass seen. No ascit es. Impression: No significant abnormalities seen. Reviewed, dictated and finalized at [facility]. Impression: No significant abnormalities seen.
--- OUTSIDE RECORDS SUMMARY | 2025-02-04 10:20 | XMS_ITS | Clinical Summary ---
Author Organization [facility] Address [address] [facility] [place] [address] Care Team Providers Care Shingle Catcher Name Role Phone Pedro Gomez MD Primary Care Provider [phone] Source Comments [facility],non-owned Affiliates and Associated Physician Practices is amultiple site organization consisting of ambulatory clinics and hospital sitesin [place], [place], [place] and [place]. This disclosure is being madepursuant to the Care Everywhere program and may not contain all information available regarding this patient. Last updated 18.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 Blood specimen (specimen) BLOOD SPECIMEN / Unknown 06/05/2017 10:50 AM CDT 06/05/2017 11:23 AM CDT Narrative [facility] ([facility]) - 06/09/2017 6:06 AM CDT Performed at: - [facility] [address] [place], [place] [id number] Doorshaker: Roberto Higgins PhD, Phone: [phone] us Zoe Crockett MD LAB - SEROLOGY ORDERABLES Final Result [facility] ([facility]) [address] [place] [address], [place] from Last 3 Months or Most Recently Relevant to Health Maintenance Insurance ANTHEM Care Teams Shingle Catcher Relationship Specialty Start Date End Date Pedro Gomez MD PCP - General 05/14/16
== END 2025-02-04 10:19 | disposition home or self-care (01) ==
LOC: CHSIMG 10:18
PROVIDERS: PCP Nurse Practitioner Family; Visit Provider Nurse Practitioner Family
DX: M54.50 Low back pain, unspecified (principal); Z87.898 Personal history of other specified conditions
CPT/HCPCS: 74177; Q9967

== ENCOUNTER 2025-03-01 10:38 | Outpatient (CLI) | payer OTHER, SELFPAY ==
--- OUTSIDE RECORDS SUMMARY | 2025-03-01 11:49 | XMS_ITS | Encounter Summary ---
Author Organization [facility] Address [address] [address] Care Team Providers Care Talent Consultant Name Role Phone Pedro Gomez MD Primary Care Provider [phone] Encounter Details Date Type Department Care Team (Late st Contact Info) Description 08/04/2020 Telephone [facility] [address] [place] [address] Ana Maria Sanchez, WEIGHT CONTROL ENGINEER-[facility] [address] [place] [place] [phone] Social History Tobacco Use Types Packs/Day Years Used Date Smoking Tobacco: Former Cigarettes Smokeless Tobacco: Never Alcohol Use Standard Drinks/Week Comments Yes 0 (1 standard drink = 0.6 oz pur e alcohol) Sex and Gender Information Value Date Recorded Sex Assigned at Not on file Legal Sex Male 5:23 PM RESCUE INSTRUCTOR Gender Identity Not on file Sexual Orientation Not on file documented as of this encounter Patient Instructions * Patient Instructions* Elisa Henning - 08/04/2020 11:14 AM RESCUE INSTRUCTOR Pt call requesting a Covid test referral. He can be contacted at [phone]. UE INSTRUCTOR documented in this encounter Plan of Treatment Not on file documented as of this encounter Visit Diagnoses Not on filedocumented in this encounter Additional Health Concerns Infection Onset Date Last Indicated Resolved Time COVID-19 Under Investigation 08/07/2020 08/08/2020 08/10/2020 7:33 AM RESCUE INSTRUCTOR COVID-19 Confirmed 08/08/2020 08/08/2020 0 4:36 AM RESCUE INSTRUCTOR documented as of this encounter Care Teams Talent Consultant Relationship Specialty Start Date End Date Pedro Gomez MD PCP - General 05/14/16 documented as of this encounter
--- OUTSIDE RECORDS SUMMARY | 2025-03-01 11:49 | XMS_ITS | Clinical Summary ---
Author Organization [facility] Address [address] [facility] [place] [address] Care Team Providers Care Cafe Lead Name Role Phone Pedro Gomez MD Primary Care Provider [phone] Source Comments [facility],non-owned Affiliates and Associated Physician Practices is amultiple site organization consisting of ambulatory clinics and hospital sitesin [place], [place] and [place]. This disclosure is being madepursuant to the Care Everywhere program and may not contain all information available regarding this patient. Last updated 18.[facility] Allergies No known active allergies Medications [...] on file Legal Sex Male 5:23 PM COLOR BUFFER Gender Identity Not on file Sexual Orientation [...] 9:26 AM CDT Height 174 cm (5' 8.5) 12/21/2021 9:26 AM CDT Body Mass Index [...] HIV 1 Antibody Negative Negative [facility] ([facility]) HIV-2 Antibody Negative Negative [facility] ([facility]) Interpretation Comment [facility] ([facility]) Comment: Negative for HIV-1 and HIV-2 antibodies See RNA Reflex. Blood specimen (specimen) BLOOD SPECIMEN / Unknown 06/05/2017 10:50 AM CDT 06/05/2017 11:23 AM CDT Narrative [facility] ([facility]) - 06/09/2017 6:06 AM CDT Performed at: - [facility] [address] [place], [place] [id number] Human Resources Training Manager: Roberto Higgins PhD, Phone: [phone] us Zoe Crockett MD LAB - SEROLOGY ORDERABLES Final Result [facility] ([facility]) [address] [place] [address], [place] from Last 3 Months or Most Recently Relevant to Health Maintenance Insurance ANTHEM Care Teams Cafe Lead Relationship Specialty Start Date End Date Pedro Gomez MD PCP - General 05/14/16
--- NOTE | 2025-03-01 15:51 | ECHO_ITS ---
Patient Info Name: Raúl Santana Age: 34 years : 1990 Gender: Male Ht: 70 in Wt: 160 lbs BSA: 1.89 m2 HR: 85 bpm BP: 148 / 92 mmHg Technical Quality: Good Exam Date: 03/01/2025 3:59 PM Patient Status: O Admit Date: 03/01/2025 Exam Type: CA echo doppler color flow Complete two-dimensional, color flow and Doppler transthoracic echocardiogram is performed. Pattern Worker: Gina Trinidad Attending Provider: Christiano Tirado Summary 1. Complete two-dimensional, color flow and Doppler transthoracic echocardiogram is performed. 2. Left ventricular chamber dimension is normal. 3. Left ventricular systolic function is normal, estimated at 60-65. 4. The left ventricular diastolic function is normal. 5. E/e' 4 is not elevated. 6. There is trace tricuspid valve regurgitation. 7. No pulmonary hypertension, estimated pulmonary arterial systolic pressure is 21 mmHg. 8. There is trace pulmonic regurgitation. Left Ventricle E/e' 4 is not elevated. Left ventricular chamber dimension is normal. Left ventricular systolic function is normal, estimated at 60-65. The left ventricular diastolic function is normal. Right Ventricle Right ventricular chamber dimension is normal. Right ventricular systolic function is normal and with normal TAPSE 2.3 cm. Left Atria Left atrial chamber dimension is normal. Right Atria Right atrial chamber dimension is normal. Aortic Valve The aortic valve is trileaflet. There is no aortic valve stenosis. There is no aortic valve regurgitation. Pulmonic Valve There is trace pulmonic regurgitation. Mitral Valve There is no mitral valve stenosis. There is no mitral valve regurgitation. Tricuspid Valve There is trace tricuspid valve regurgitation. No pulmonary hypertension, estimated pulmonary arterial systolic pressure is 21 mmHg. Pericardium/Pleural There is no pericardial effusion. Inferior Vena Cava Normal inferior vena cava with >50% collapse upon inspiration consistent with normal right atrial pressure, 5 mmHg. Aorta The aortic root size at the sinus of Valsalva is normal. Left Ventricular Outflow Tract Name Value Normal LVOT 2D LVOT Diameter 1.6 cm LVOT Doppler LVOT Peak Velocity 122 cm/s LVOT Peak Gradient 6 mmHg LVOT Mean Gradient 3 mmHg LVOT VTI 20 cm LVOT VTI/AV VTI Ratio 0.8 LVOT Stroke Volume 39 ml LVOT CO 2.9 l/min LVOT CI 1.5 l/min/m2 Pulmonic Valve Name Value Normal PV Doppler PV Peak Velocity 108 cm/s PV Peak Gradient 5 mmHg PV Regurgitation Doppler OR Peak End Diastolic Velocity 50 cm/s Mitral Valve Name Value Normal MV Diastolic Function MV E Peak Velocity 75 cm/s MV A Peak Velocity 64 cm/s MV E/A 1.2 MV Decel Time (PW) 256 ms MV Annular TDI MV E/e' (Septal) 5.1 MV E/e' (Lateral) 4.0 MV E/e' (Average) 4.6 Tricuspid Valve Name Value Normal TV Regurgitation Doppler TR Peak Velocity 201 cm/s TR Peak Gradient 16 mmHg Estimated PAP/RSVP RA Pressure 5 mmHg <=5 PA Systolic Pressure 21 mmHg <36 RV Systolic Pressure 21 mmHg <36 TV Annular TDI TV Lateral Sandra s' Velocity 14.6 cm/s >=9.5 Aortic Valve Name Value Normal AV Doppler AV Peak Velocity 141 cm/s AV Peak Gradient 8 mmHg AV Mean Gradient 4 mmHg AV VTI 24 cm AV Area (Cont Eq VTI) 1.7 cm2 >=3.0 AV Area (Cont Eq Alistair) 1.7 cm2 AV DI (Alistair) 0.87 AV Regurgitation 2D LVOT Area 2.0 cm2 Ventricles Name Value Normal LV Dimensions 2D/MM IVS Diastolic Thickness (2D) 1.0 cm 0.6-1.0 LVID Diastole (2D) 4.4 cm 4.2-5.8 LVIW Diastolic Thickness (2D) 1.0 cm 0.6-1.0 LVID Systole (2D) 2.9 cm 2.5-4.0 LVOT Diameter 1.6 cm LV Mass (2D Cubed) 140.59 g 88.00-224.00 LV Mass Index (2D Cubed) 74 g/m2 49-115 Relative Wall Thickness (2D) 0.44 <=0.42 LV Fractional Shortening/Ejection Fraction 2D/MM LV Fractional Shortening (2D) 34 % 25-43 LV EF (2D Teichholz) 63 % LV Diastolic Volume (4C MOD) 93 ml LV EF (4C MOD) 64 % LV Diastolic Volume (2C MOD) 100 ml LV EF (2C MOD) 62 % LV Diastolic Volume (BP MOD) 98 ml 62-150 LV Diastolic Volume Index (BP MOD) 52 ml/m2 34-74 LV Systolic Volume (BP MOD) 37 ml 21-61 LV Systolic Volume Index (BP MOD) 19 ml/m2 11-31 LV EF (BP MOD) 62 % 52-72 LV Diastolic Length (4C) 8.4 cm LV Systolic Length (4C) 6.5 cm LV Stroke Volume (4C MOD) 59 ml Atria Name Value Normal LA Dimensions LA Volume (4C A-L) 20 ml LA Volume (BP A-L) 25 ml RA Dimensions RA Systolic Major [place] Length (4C) 4.2 cm 2.1-2.7 RA Area (4C) 12.4 cm2 <=18.0 Report Signatures
== END 2025-03-01 10:39 | disposition home or self-care (01) ==
LOC: CHSIMG 10:39
PROVIDERS: PCP Nurse Practitioner Family; Visit Provider Nurse Practitioner Family
DX: R94.31 Abnormal electrocardiogram [ECG] [EKG] (principal); R07.89 Other chest pain
CPT/HCPCS: 93306

== ENCOUNTER 2025-04-13 08:02 | Outpatient (CLI) | payer OTHER, SELFPAY ==
--- OUTSIDE RECORDS SUMMARY | 2025-04-13 08:06 | XMS_ITS | Clinical Summary ---
Author Organization [facility] Address [address] [place] [address] Care Team Providers Care Hand Spring Former Name Role Phone Pedro Gomez MD Primary Care Provider [phone] Source Comments [facility],non-owned Affiliates and Associated Physician Practices is amultiple site organization consisting of ambulatory clinics and hospital sitesin [place], [place], [place] and [place]. This disclosure is being madepursuant to the Care Everywhere program and may not contain all information available regarding this patient. 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 Gender Identity Not on file Sexual Orientation [...] of 3 - 19+ 3-dose series) 2011 HPV VACCINE (1 - 3-dose SCDM series) 2019 COVID-19 VACCINE (1 - 2023-2 5 season) 2024 DEPRESSION SCREENING 09/22/2024 02/22/2022 DTAP/TDAP/TD VACCINES (2 - T d or Tdap) 04/28/2025 04/28/2015 INFLUENZA VACCINE (#1) 2025 07/24/2018 ZOSTER VACCINE (1 of 2) 2042 HIV [...] HIV 1 Antibody Negative Negative [facility] ([facility]) HIV-2 Antibody Negative Negative [facility] ([facility]) Interpretation Comment [facility] ([facility]) Comment: Negative for HIV-1 and HIV-2 antibodies See RNA Reflex. Blood specimen (specimen) BLOOD SPECIMEN / Unknown 06/05/2017 10:50 AM CDT 06/05/2017 11:23 AM CDT Narrative [facility] ([facility]) - 06/09/2017 6:06 AM CDT Performed at: 01 - [facility] [address] [place], [place] [id number] Linter Tender: Roberto Higgins PhD, Phone: [phone] us Zoe Crockett MD LAB - SEROLOGY ORDERABLES Final Result [facility] ([facility]) [phone] from Last 3 Months or Most Recently Relevant to Health Maintenance Insurance [employer] Care Teams Hand Spring Former Relationship Specialty Start Date End Date Pedro Gomez MD PCP - General 05/14/16
--- OUTSIDE RECORDS SUMMARY | 2025-04-13 08:06 | XMS_ITS | Encounter Summary ---
Author Organization [facility] Address [address] [place] [address] Care Team Providers Care Resident Care Aide Name Role Phone Pedro Gmoez MD Primary Care Provider [phone] Encounter Details Date Type Department Care Team (Late st Contact Info) Description 08/04/2020 Telephone [facility] [address] [place] [address] Ana Maria Sanchez, DESIGN VERIFICATION ENGINEER-[facility] [address] [place] [id number] Social History Tobacco Use Types Packs/Day Years Used Date Smoking Tobacco: Former Cigarettes Smokeless Tobacco: Never Alcohol Use Standard Drinks/Week Comments Yes 0 (1 standard drink = 0.6 oz pur e alcohol) Sex and Gender Information Value Date Recorded Sex Assigned at Not on file 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 He can be contacted at [phone]. L BURNISHER documented in this encounter Plan of Treatment Not on file documented as of this encounter Visit Diagnoses Not on filedocumented in this encounter Additional Health Concerns Infection Onset Date Last Indicated Resolved Time COVID-19 Under Investigation 08/07/2020 08/08/2020 08/10/2020 7:33 AM METAL BURNISHER COVID-19 Confirmed 08/08/2020 08/08/2020 0 4:36 AM METAL BURNISHER documented as of this encounter Care Teams Resident Care Aide Relationship Specialty Start Date End Date Pedro Gomez MD PCP - General 05/14/16 documented as of this encounter
--- NOTE | 2025-04-13 08:12 | EST_ITS ---
Patient Info Name: Raúl Santana Age: 34 years : 1990 Gender: Male Ht: 70 in Wt: 160 lbs BSA: 1.89 m2 HR: 70 bpm BP: 140 / 69 mmHg Exam Date: 04/13/2025 8:12 AM Patient Status: O Admit Date: 04/13/2025 Exam Type: CA stress test treadmill A treadmill exercise stress test was performed. Staff Attending Provider: Satya Cervantes DO Exercise Technologist: [place] Exercise Physician: Satya Cervantes DO Summary 1. 1. Negative Panda exercise stress test for ischemic ST changes by ECG criteria. 2. 2. Good functional capacity, achieving 13.9 METs of workload. 3. 3. Appropriate HR response to exercise. 4. 4. Appropriate HR recovery at 1 minute post exercise. 5. 5. No imaging with stress testing. 6. 6. Patient informed of the above results. Protocol: Panda Stress ECG Details Stage: REST Duration (min): 1 min : 1 sec Speed (mph): 0.0 Grade (%): 0 HR (bpm): 71 SBP (mmHg): 140 DBP (mmHg): 69 METS: --- Stage: REST Duration (min): 5 min : 2 sec Speed (mph): 0.0 Grade (%): 0 HR (bpm): 86 SBP (mmHg): 140 DBP (mmHg): 69 METS: --- Stage: STAGE 1 Duration (min): 1 min : 0 sec Speed (mph): 1.7 Grade (%): 10 HR (bpm): 97 SBP (mmHg): 140 DBP (mmHg): 69 METS: --- Stage: STAGE 1 Duration (min): 2 min : 0 sec Speed (mph): 1.7 Grade (%): 10 HR (bpm): 103 SBP (mmHg): 140 DBP (mmHg): 69 METS: --- Stage: STAGE 1 Duration (min): 3 min : 0 sec Speed (mph): 1.7 Grade (%): 10 HR (bpm): 113 SBP (mmHg): 150 DBP (mmHg): 72 METS: --- Stage: STAGE 2 Duration (min): 1 min : 0 sec Speed (mph): 2.5 Grade (%): 12 HR (bpm): 116 SBP (mmHg): 150 DBP (mmHg): 72 METS: --- Stage: STAGE 2 Duration (min): 2 min : 0 sec Speed (mph): 2.5 Grade (%): 12 HR (bpm): 121 SBP (mmHg): 156 DBP (mmHg): 69 METS: --- Stage: STAGE 2 Duration (min): 3 min : 0 sec Speed (mph): 2.5 Grade (%): 12 HR (bpm): 131 SBP (mmHg): 156 DBP (mmHg): 69 METS: --- Stage: STAGE 3 Duration (min): 1 min : 0 sec Speed (mph): 3.4 Grade (%): 14 HR (bpm): 133 SBP (mmHg): 158 DBP (mmHg): 74 METS: --- Stage: STAGE 3 Duration (min): 2 min : 0 sec Speed (mph): 3.4 Grade (%): 14 HR (bpm): 144 SBP (mmHg): 158 DBP (mmHg): 74 METS: --- Stage: STAGE 3 Duration (min): 3 min : 0 sec Speed (mph): 3.4 Grade (%): 14 HR (bpm): 145 SBP (mmHg): 174 DBP (mmHg): 76 METS: --- Stage: STAGE 4 Duration (min): 1 min : 0 sec Speed (mph): 4.2 Grade (%): 16 HR (bpm): 145 SBP (mmHg): 174 DBP (mmHg): 76 METS: --- Stage: STAGE 4 Duration (min): 2 min : 0 sec Speed (mph): 4.2 Grade (%): 16 HR (bpm): 156 SBP (mmHg): 173 DBP (mmHg): 75 METS: --- Stage: STAGE 4 Duration (min): 3 min : 0 sec Speed (mph): 4.2 Grade (%): 16 HR (bpm): 162 SBP (mmHg): 173 DBP (mmHg): 75 METS: --- Stage: STAGE 5 Duration (min): 1 min : 0 sec Speed (mph): 5.0 Grade (%): 18 HR (bpm): 166 SBP (mmHg): 176 DBP (mmHg): 80 METS: --- Stage: STAGE 5 Duration (min): 1 min : 0 sec Speed (mph): 5.0 Grade (%): 18 HR (bpm): 166 SBP (mmHg): 176 DBP (mmHg): 80 METS: --- Stage: RECOVERY Duration (min): 0 min : 59 sec Speed (mph): 0.0 Grade (%): 0 HR (bpm): 147 SBP (mmHg): 176 DBP (mmHg): 80 METS: --- Stage: RECOVERY Duration (min): 1 min : 59 sec Speed (mph): 0.0 Grade (%): 0 HR (bpm): 122 SBP (mmHg): 176 DBP (mmHg): 80 METS: --- Stage: RECOVERY Duration (min): 2 min : 59 sec Speed (mph): 0.0 Grade (%): 0 HR (bpm): 106 SBP (mmHg): 146 DBP (mmHg): 59 METS: --- Stage: RECOVERY Duration (min): 3 min : 59 sec Speed (mph): 0.0 Grade (%): 0 HR (bpm): 100 SBP (mmHg): 146 DBP (mmHg): 59 METS: --- Stage: RECOVERY Duration (min): 4 min : 59 sec Speed (mph): 0.0 Grade (%): 0 HR (bpm): 102 SBP (mmHg): 129 DBP (mmHg): 63 METS: --- Stage: RECOVERY Duration (min): 5 min : 2 sec Speed (mph): 0.0 Grade (%): 0 HR (bpm): 101 SBP (mmHg): 129 DBP (mmHg): 63 METS: --- Rest HR: 86 bpm Peak HR: 170 bpm Rest Sys BP: 140 mmHg Peak Sys BP: 176 mmHg Max Pred HR: 188 bpm % Max Pred HR: 90 % Target HR: 160 bpm Max RPP: 29,920 bpm*mmHg Cardona Score: -23 Termination Reason: Reached target heart rate or workload Cardiac Symptoms: None Max ST Seg Deviation: 7.10 mm Total Time: 13 min : 0 sec Rest Cadena BP: 69 mmHg Peak Cadena BP: 80 mmHg Angina Score: None Total METS: 13.9 Resting ECG Sinus rhythm. Stress ECG No ST changes. Arrhythmias None. Report Signatures
== END 2025-04-13 08:03 | disposition home or self-care (01) ==
PROVIDERS: PCP Nurse Practitioner Family; Visit Provider Internal Medicine Cardiovascular Disease
DX: R07.89 Other chest pain (principal)
CPT/HCPCS: 93017